=== PATIENT | female | born 1935 | race American Indian/Alaskan Native ===

== ENCOUNTER 2017-08-17 08:10 | Inpatient (IN) | payer MEDICARE, MEDICAID ==
[2017-08-17] MEDS ORDERED: Sodium Chloride 0.9% 500 ML IV ONE (08:31)
[2017-08-17] MEDS ORDERED: Morphine 4 MG/ML VIAL ONE (08:47)
[2017-08-17] MEDS ORDERED: Sodium Chloride 0.9% 1,000 ML ONE (08:47)
[2017-08-17 09:04] LABS: ALB/GLOB RATIO 1.5 (1.0-2.1); ALCOHOL SERUM 92 mg/dl (0-10); ALKALINE PHOSPHATASE 146 U/L (38-126); ALT/SGPT 48 U/L (9-52); AST/SGOT 61 U/L (14-36); BILIRUBIN,TOTAL 1.4 mg/dL (0.2-1.3); BLOOD UREA NITROGEN 11 mg/dL (7-17); CALCIUM 8.4 mg/dl (8.6-10.4); CARBON DIOXIDE 24 mmol/L (22-30); CHLORIDE 101 mmol/L (98-107); GFR AFRICAN-AMERICAN > 60; GLUCOSE,RANDOM 77 mg/dL (65-105); POTASSIUM 3.4 mmol/L (3.6-5.2); SODIUM 142 mmol/L (132-148); TOTAL PROTEIN 7.7 g/dL (6.3-8.3)
[2017-08-17 09:05] LABS: INR 0.9
[2017-08-17 09:06] LABS: BASO % 0.3 % (0.0-2.0); HEMATOCRIT 36.3 % (34.0-47.0); LYMPH # 0.6 K/uL (1.0-4.3); LYMPH % 6.8 % (20.0-40.0); MEAN CELL VOLUME 89.7 fL (81.0-99.0); MEAN CORPUSCULAR HEMOGLOBIN 29.6 pg (27.0-31.0); MEAN PLATELET VOLUME 8.3 fL (7.2-11.7); MONO # 0.5 K/uL (0.0-0.8); MONO % 5.7 % (0.0-10.0); PLATELET COUNT 292 K/uL (130-400); RED CELL DISTRIBUTION WIDTH 15.1 % (11.5-14.5); WHITE BLOOD COUNT 9.1 K/uL (4.8-10.8)
--- NOTE | 2017-08-17 09:31 | C.PDOC ---
History Of Present Illness 82-year-old female, PMHx includes Hypertension, is BIBA after a fall this morning. Patient is unsure how or why she fell. Grandson states he found her on floor complaining of left hip and left wrist pain. Patient denies LOC, head injury, dizziness, chest pain, palpitations. - HPI Time Seen by Provider: 08/17/17 08:14 Chief Complaint (Nursing): Trauma History Per: Patient, Family Injury Occurred (Timing): Just Before Arrival Past Medical History Reviewed: Historical Data, Nursing Documentation, Vital Signs Vital Signs: Last Vital Signs Temp 97.8 F 08/21/17 04:00 Pulse 96 H 08/21/17 04:00 Resp 20 08/21/17 04:00 BP 116/68 08/21/17 04:00 Pulse Ox 96 08/21/17 04:00 - Medical History PMH: CVA, HTN Family History: States: Diabetes, Hypertension - Social History Hx Tobacco Use: No Hx Alcohol Use: Yes Hx Substance Use: No - Immunization History Hx Tetanus Toxoid Vaccination: No Hx Influenza Vaccination: No Hx Pneumococcal Vaccination: No Review Of Systems Except As Marked, All Systems Reviewed And Found Negative. Constitutional: Negative for: Fever, Chills Cardiovascular: Negative for: Chest Pain, Palpitations Respiratory: Negative for: Shortness of Breath Gastrointestinal: Negative for: Nausea, Vomiting, Abdominal Pain, Diarrhea Musculoskeletal: Positive for: Hand Pain (L wrist), Other (L hip pain). Negative for: Neck Pain, Back Pain Neurological: Negative for: Weakness, Numbness, Headache, Dizziness Physical Exam - Physical Exam Appears: Well, Non-toxic, Other (in moderate pain ) Skin: Warm, Dry, No Rash Head: Atraumatic, Normacephalic Eye(s): bilateral: Normal Inspection, PERRL Oral Mucosa: Moist Cardiovascular: Rhythm Regular Respiratory: Normal Breath Sounds, No Rales, No Rhonchi, No Wheezing Gastrointestinal/Abdominal: Normal Exam, Bowel Sounds, Soft, No Tenderness Extremity: No Calf Tenderness, Capillary Refill (<2 seconds), No Deformity, Other (left hip: tender to palpation, left leg externally rotated. Mildy tender to palpation at left knee and left wrist w/ mild swelling (at wrist). ) Pulses: Left Radial: Normal, Right Radial: Normal, Left Dorsalis Pedis: Normal, Right Dorsalis Pedis: Normal Neurological/Psych: Oriented x3, Normal Speech, Normal Cognition ED Course And Treatment - Laboratory Results Result Diagrams: 08/20/17 07:44 08/20/17 07:44 ECG: Interpreted By Me, Viewed By Me (sinus tachycardia 103 bpm with PVCs, left axis deviation, no acute ST/T wave changes ) ECG Interpretation: Abnormal O2 Sat by Pulse Oximetry: 96 (on RA) Pulse Ox Interpretation: Normal - CT Scan/US ct head Other Rad Studies (CT/US): Read By Radiologist, Radiology Report Reviewed CT/US Interpretation: Accession No. : [id number]. Patient Name / ID : CATRACHITA BHATIA / [id number]. Exam Date : 08/17/2017 09:14:53 ( Approved ). Study Comment : Sex / Age : F / 82Y. Creator : Mina Vivas MD. Dictator : Mina Vivas MD. Location Director : Head Esthetician : Mina Vivas MD. Approver2 : Report Date : 08/17/2017 09:54:48. My Comment : . This report is currently processing and HAS NOT BEEN OFFICIALLY SIGNED BY THE PHYSICIAN - ESTIMATED TIME OF APPROVAL IS 08/17/2017 09:59. PROCEDURE: CT HEAD WITHOUT CONTRAST. HISTORY: FALL, UNCLEAR IF SYNCOPE. COMPARISON: 2014. TECHNIQUE: Axial computed tomography images were obtained through the head/brain without intravenous contrast. Radiation dose: Total exam DLP = 963 mGy-cm. This CT exam was performed using one or more of the following dose reduction techniques: Automated exposure control, adjustment of the mA and/or kV according to patient size, and/or use of iterative reconstruction technique. FINDINGS: HEMORRHAGE: No intracranial hemorrhage. BRAIN: No mass effect or edema. Scattered focal lucencies in the subcortical and periventricular white matter suggestive for chronic microvascular ischemic change. Dense bilateral basal ganglia calcifications. Stable lacunar infarct in the right caudate head. Persistent linear radiopaque foci seen within the bilateral cerebellum suggestive for calcifications. Persistent chronic low attenuation seen within the posterior right parietal white matter suggestive for chronic ischemic change. VENTRICLES: Unremarkable. No hydrocephalus. CALVARIUM: Persistent bowing deformity of the left zygomatic arch. PARANASAL SINUSES: Unremarkable as visualized. No significant inflammatory changes. MASTOID AIR CELLS: Unremarkable as visualized. No inflammatory changes. OTHER FINDINGS: None. IMPRESSION: No acute intracranial abnormality. Chronic microvascular ischemic changes. Stable right caudate head lacunar infarct. Stable bilateral basal ganglia and cerebellar calcifications. Additional findings as above. If focal neurologic deficit persists, consider MRI. Progress Note: Bloodwork, EKG, CT Head, CXR, XR L Knee, L Hip and L Wrist ordered and reviewed. Patient treated with Morphine and IVFs. Patient and family at bedside state her primary doctor is Dr. Brand. 11:45am- Discussed patient with Dr. Nuno, aware of patient with left hip fx. Patient can bed fed today as per him. - Physician Consult Information Physician Contacted: Bora Brand Outcome Of Conversation: Discussed patient with PMD Dr. Brand, agrees with admission to his service for left hip fx with Dr. Nuno for orthopedics. Disposition - Disposition Disposition: HOSPITALIZED Disposition Time: 10:00 Condition: STABLE - Clinical Impression Clinical Impression: Closed left hip fracture, Fall - Scribe Statement The provider has reviewed the documentation as recorded by the Scribe (Marilia Dick) All medical record entries made by the Scribe were at my direction and personally dictated by me. I have reviewed the chart and agree that the record accurately reflects my personal performance of the history, physical exam, medical decision making, and the department course for this patient. I have also personally directed, reviewed, and agree with the discharge instructions and disposition. Decision To Admit - Pt Status Changed To: Hospital Disposition Of: Inpatient - Admit Certification Admit to Inpatient:: After my assessment, the patient will require hospitalization for at least two midnights. This is because of the severity of symptoms shown, intensity of services needed, and/or the medical risk in this patient being treated as an outpatient. - InPatient: Physician Admission Certification: I certify that this patient requires 2 or more midnights of care for the following reason:: see notes - . Bed Request Type: Regular Admitting Physician: Bora Elamir Patient Diagnosis: Closed left hip fracture, Fall
--- NOTE | 2017-08-17 09:35 | RAD ---
Pelvis and left hip two views History: Left hip pain. Fracture. Comparison: None available. Findings: Transverse oblique fracture deformity through the left proximal femur at the level of the base of the femoral neck /intertrochanteric region with moderate angulation of the femoral head in relationship to the distal femur. Severe degenerative changes of the right hip joint space with joint space narrowing and subchondral sclerosis. Overlying bowel gas precludes evaluation of the sacrum and bilateral iliac bones. Rounded radiopaque density projects over the right mya abdomen as well as lower pelvis suggestive for possible calcified phleboliths. Impression: Fracture deformity of the left proximal femur.
[2017-08-17 09:49] LABS: NEUTROPHIL 86 % (50-75); TOTAL CELLS COUNTED 100
--- NOTE | 2017-08-17 09:56 | CT ---
PROCEDURE: CT HEAD WITHOUT CONTRAST. HISTORY: FALL, UNCLEAR IF SYNCOPE COMPARISON: 05/17/2015 TECHNIQUE: Axial computed tomography images were obtained through the head/brain without intravenous contrast. Radiation dose: Total exam DLP = 963 mGy-cm. This CT exam was performed using one or more of the following dose reduction techniques: Automated exposure control, adjustment of the mA and/or kV according to patient size, and/or use of iterative reconstruction technique. FINDINGS: HEMORRHAGE: No intracranial hemorrhage. BRAIN: No mass effect or edema. Scattered focal lucencies in the subcortical and periventricular white matter suggestive for chronic microvascular ischemic change. Dense bilateral basal ganglia calcifications. Stable lacunar infarct in the right caudate head. Persistent linear radiopaque foci seen within the bilateral cerebellum suggestive for calcifications. Persistent chronic low attenuation seen within the posterior right parietal white matter suggestive for chronic ischemic change. VENTRICLES: Unremarkable. No hydrocephalus. CALVARIUM: Persistent bowing deformity of the left zygomatic arch. PARANASAL SINUSES: Unremarkable as visualized. No significant inflammatory changes. MASTOID AIR CELLS: Unremarkable as visualized. No inflammatory changes. OTHER FINDINGS: None. IMPRESSION: No acute intracranial abnormality. Chronic microvascular ischemic changes Stable right caudate head lacunar infarct. Stable bilateral basal ganglia and cerebellar calcifications. Additional findings as above. If focal neurologic deficit persists, consider MRI.
[2017-08-17 10:14] LABS: RBC URINE 3 /hpf (0-3); URINE BACTERIA RARE (<OCC); URINE BILIRUBIN NEGATIVE (NEGATIVE); URINE BLOOD 1+ (NEGATIVE); URINE COLOR Colorless (YELLOW); URINE GLUCOSE (UA) NORMAL (Normal); URINE KETONE 1+ mg/dL (NEGATIVE); URINE LEUKOCYTE ESTERASE TRACE Leu/uL (Negative); URINE PROTEIN NEGATIVE (NEGATIVE); URINE UROBILINOGEN NORMAL mg/dL (0.2-1.0); WBC URINE 2 /hpf (0-5)
[2017-08-17] MEDS ORDERED: Nitroglycerin 2% Ointment Foilpak UD TOP STA (11:17)
--- NOTE | 2017-08-17 11:34 | RAD ---
Left wrist four views History: Fall. Comparison: None available. Findings: Suggestion of cortical irregularity along the radial aspect of the distal radius at the level of the physis concerning for possible fracture deformity. Clinical correlation. Punctate radiopaque density seen at the ulnar aspect of the midcarpal row, nonspecific. Prominent degenerative changes at the 1st carpometacarpal joint space. Degenerative changes noted at the 1st MCP and 5th MCP joint spaces. Degenerative changes noted at the STT joint space. Mild productive change and or bony protuberance along the medial cortex of the mid to distal scaphoid, clinical correlation. Impression: Suggestion of cortical irregularity along the radial aspect of the distal radius at the level of the physis concerning for possible fracture deformity. Clinical correlation. Punctate radiopaque density seen at the ulnar aspect of the midcarpal row, nonspecific. Prominent degenerative changes at the 1st carpometacarpal joint space. Degenerative changes noted at the 1st MCP and 5th MCP joint spaces. Degenerative changes noted at the STT joint space. Mild productive change and or bony protuberance along the medial cortex of the mid to distal scaphoid, clinical correlation. Correlation with MRI may be helpful if clinically indicated.
[2017-08-17] MEDS: Enoxaparin 40 mg Syringe SC SCH (14:00)
--- NOTE | 2017-08-17 14:19 | RAD ---
Left knee two views History: Injury. Comparison: None available. Findings: Moderate medial and patellofemoral compartment joint space narrowing. Lateral compartmental osteophytosis. Moderate suprapatellar joint effusion. Lobulated soft tissue calcifications seen both anteriorly and posteriorly at the level of the knee joint. Suggestion of loose osteochondral bodies at the posterior aspect of the femorotibial joint space. Vascular calcifications. On the lateral view, there is a linear radiopaque and/or metallic density projecting over distal femur which may be external and/or within the lateral soft tissues. Clinical correlation. Impression: Moderate medial and patellofemoral compartment joint space narrowing. Lateral compartmental osteophytosis. Moderate suprapatellar joint effusion. Lobulated soft tissue calcifications seen both anteriorly and posteriorly at the level of the knee joint. Suggestion of loose osteochondral bodies at the posterior aspect of the femorotibial joint space. Vascular calcifications. On the lateral view, there is a linear radiopaque and/or metallic density projecting over distal femur which may be external and/or within the lateral soft tissues. Clinical correlation.
--- NOTE | 2017-08-18 09:35 | CT ---
CT bony pelvis History: Left hip fracture. Comparison: None available. Technique: Axial computed tomographic images of the pelvis were performed without intravenous contrast. Subsequently, sagittal and coronal reformatted images were obtained. This CT exam was performed using one or more of the following dose reduction techniques: Automated exposure control, adjustment of the mA and/or kV according to patient size, and/or use of iterative reconstruction technique. Findings: Acute subcapital fracture identified within the left proximal femur with mild displacement. Femoral shaft is externally rotated and superiorly displaced relative to the femoral head. Calcified atherosclerotic disease. Decompressed urinary bladder with a Ramos catheter. Incidentally noted is a 1.1 centimeter calcified gallstone. Posterior disc osteophyte complex at the L5-S1 level noted. Prominent left-sided paravertebral osteophytosis at the L4-5 level. Small hypoattenuated cystic foci noted within the right proximal femur at the level of the physis. Impression: Findings concerning for a subcapital fracture of the left proximal femur as detailed above. These findings were preliminarily reported at 10:16 p.m. on 08/17/[address] Aletha Gamez from [facility].
[2017-08-18] MEDS: Enoxaparin 40 mg Syringe SC SCH (09:45)
--- NOTE | 2017-08-18 10:42 | RAD ---
PROCEDURE: CHEST RADIOGRAPH, 1 VIEW HISTORY: Fall COMPARISON: None available. FINDINGS: LUNGS: The lungs are well inflated. There is moderate venous congestion and mild interstitial pulmonary edema. PLEURA: No pneumothorax or pleural fluid seen. CARDIOVASCULAR: There is mild cardiomegaly and unfolding of the aorta. OSSEOUS STRUCTURES: No significant abnormalities. VISUALIZED UPPER ABDOMEN: Normal. OTHER FINDINGS: None. IMPRESSION: Moderate pulmonary venous congestion and mild interstitial pulmonary edema No acute findings.
--- NOTE | 2017-08-18 10:57 | HP ---
HISTORY OF PRESENT ILLNESS: An 82-year-old female, history of hypertension, stays at home. The patient sustained a fracture of the hip. Patient has history of hypertension, high cholesterol. The patient takes lisinopril, Zestril, vitamin D. PHYSICAL EXAMINATION: GENERAL: Patient is awake, alert, and oriented. VITAL SIGNS: Temperature 98, pulse 90. HEENT: Within normal limits. NECK: Supple. CHEST: Symmetrical. HEART: Regular. ABDOMEN: Soft. EXTREMITIES: No edema. IMPRESSION: . The patient with fractured hip. The patient to get bedrest, supportive care, Orthopedic consult, n.p.o. Bora Brand MD
[2017-08-18 11:53] LABS: BASO % 0.3 % (0.0-2.0); EOS % 0.1 % (0.0-4.0); HEMATOCRIT 36.2 % (34.0-47.0); LYMPH # 1.1 K/uL (1.0-4.3); LYMPH % 10.8 % (20.0-40.0); MEAN CELL VOLUME 88.3 fL (81.0-99.0); MEAN CORPUSCULAR HEMOGLOBIN 29.3 pg (27.0-31.0); MEAN CORPUSCULAR HGB CONC 33.2 g/dL (33.0-37.0); MEAN PLATELET VOLUME 8.5 fL (7.2-11.7); MONO # 0.7 K/uL (0.0-0.8); MONO % 7.3 % (0.0-10.0); NRBC % 0.1 % (0.0-2.0); RED CELL DISTRIBUTION WIDTH 14.8 % (11.5-14.5); WHITE BLOOD COUNT 10.3 K/uL (4.8-10.8)
[2017-08-18 12:22] LABS: ALB/GLOB RATIO 1.4 (1.0-2.1); BILIRUBIN,TOTAL 1.3 mg/dL (0.2-1.3); CALCIUM 8.1 mg/dl (8.6-10.4); MAGNESIUM 1.4 mg/dL (1.6-2.3); POTASSIUM 4.4 mmol/L (3.6-5.2); TOTAL PROTEIN 6.8 g/dL (6.3-8.3)
--- NOTE | 2017-08-18 12:59 | CP.PCM.PN ---
Subjective - Date & Time of Evaluation Date of Evaluation: 08/18/17 Time of Evaluation: 08:00 - Subjective Subjective: Medicine progress note Patient seen and examined at bedside this morning. Patient states that she has pain on the left side of her leg/hip. She denies fever/chills. Patient has no other complaints this morning. She states that she has not been able to eat much and doesn't have an appetite. She was requesting ensure drinks. Objective - Vital Signs/Intake and Output Vital Signs (last 24 hours): Temp Pulse Resp BP Pulse Ox 98.5 F 99 H 20 103/68 98 08/18/17 07:26 08/18/17 09:15 08/18/17 07:26 08/18/17 09:15 08/18/17 07:26 Intake and Output: 08/18/17 08/18/17 06:59 18:59 Intake Total 10 Output Total 50 Balance -40 - Medications Medications: Current Medications Amlodipine Besylate (Norvasc) 5 mg PO DAILY [facility] Last Admin: 08/18/17 09:17 Dose: Not Given Enoxaparin Sodium (Lovenox) 40 mg SC DAILY [facility] Last Admin: 08/18/17 09:45 Dose: 40 mg Hydrochlorothiazide (Hydrodiuril) 25 mg PO DAILY [facility] Last Admin: 08/18/17 09:43 Dose: 25 mg Lisinopril (Zestril) 10 mg PO DAILY [facility] Last Admin: 08/18/17 09:17 Dose: 10 mg Morphine Sulfate (Morphine) 4 mg IVP Q2 PRN PRN Reason: Pain Last Admin: 08/18/17 05:53 Dose: 4 mg Rosuvastatin Calcium (Crestor) 10 mg PO HS [facility] Last Admin: 08/17/17 21:16 Dose: 10 mg - Labs Labs: 08/18/17 11:40 08/18/17 11:40 PT 10.1 SECONDS (9.7-12.2) 08/17/17 08:48 INR 0.9 08/17/17 08:48 APTT 31 SECONDS (21-34) 08/17/17 08:48 - Constitutional Appears: Non-toxic, No Acute Distress, Chronically Ill - Head Exam Head Exam: ATRAUMATIC, NORMAL INSPECTION - Eye Exam Eye Exam: EOMI - ENT Exam ENT Exam: Mucous Membranes Moist - Respiratory Exam Respiratory Exam: Clear to Ausculation Bilateral, NORMAL BREATHING PATTERN. absent: Respiratory Distress - Cardiovascular Exam Cardiovascular Exam: REGULAR RHYTHM, +S1, +S2 - GI/Abdominal Exam GI & Abdominal Exam: Soft, Normal Bowel Sounds. absent: Distended, Firm, Guarding, Tenderness - Extremities Exam Extremities Exam: Normal Inspection Additional comments: Left leg externally rotation. pain on left side of hip - Back Exam Back Exam: NORMAL INSPECTION - Neurological Exam Neurological Exam: Alert, Awake, Oriented x3 - Psychiatric Exam Psychiatric exam: Normal Affect, Normal Mood - Skin Skin Exam: Dry, Intact, Normal Color, Warm Assessment and Plan - Assessment and Plan (Free Text) Assessment: Left Femur fracture - s/p fall Patient for possible OR tomorrow for left proximal femur fracture 08/17 Hip/Pelvis Xray Transverse oblique fracture deformity through the left proximal femur at the level of the base of the femoral neck/introchanteric region, (please read full report) f/u Pelvis CT Chest X ray/EKG coags for pre op, Dr Torres consulted, help appreciated for pre op clearance Morphone 4mg IVP Q2 prn Knee X ray - no fracture (please read full report) Wrist Xray - degenerative changes (please read full report) Head CT - no bleed, chronic microvascular changes, stable right caudate head lacunar infarct, stable basal gangalia and cerebellar calcifications. Hypertension Norvasc 5mg PO daily HCCTZ 25mg PO daily Lisinopril 10mg PO daily Crestor 10mg PO HS Prophylactic Measures Lovenox 40mg SC daily - will hold at midnight pre OR NPO post midnight
[2017-08-18] MEDS: Magnesium Sulfate 1 gm in D5W 1 GM/100 ML BAG IVPB SCH ×2 (14:04→16:46)
--- NOTE | 2017-08-18 14:45 | CP.PCM.CON ---
History of Present Illness - History of Present Illness History of Present Illness: Orthopedic consultation Dr. Rabago 82F complains of left hip pain after fall walking to bathroom at home. Patient + ETOH on admission. Denies pain in other extremities.She says her wrist was swollen before but is not painful. Review of Systems - Review of Systems All systems: reviewed and no additional remarkable complaints except Past Patient History - Infectious Disease Hx of Infectious Diseases: None - Tetanus Immunizations Tetanus Immunization: Unknown - Past Medical History & Family History Past Medical History?: Yes - Past Social History Smoking Status: Light Smoker < 10 Cigarettes Daily - CARDIAC Hx Hypertension: Yes - PULMONARY Hx Respiratory Disorders: No - NEUROLOGICAL HX Cerebrovascular Accident: Yes - HEENT Hx HEENT Problems: No - RENAL Hx Chronic Kidney Disease: No - ENDOCRINE/METABOLIC Hx Endocrine Disorders: No - HEMATOLOGICAL/ONCOLOGICAL Hx Blood Disorders: No - INTEGUMENTARY Hx Dermatological Problems: No - MUSCULOSKELETAL/RHEUMATOLOGICAL Hx Falls: No - GASTROINTESTINAL Hx Gastrointestinal Disorders: No - GENITOURINARY/GYNECOLOGICAL Hx Genitourinary Disorders: No - PSYCHIATRIC Hx Substance Use: No - SURGICAL HISTORY Other/Comment: yes, enlarged bladder, poor urinary control, date unknown - ANESTHESIA Hx Anesthesia: Yes Hx Anesthesia Reactions: No Meds Allergies/Adverse Reactions: Allergies Allergy/AdvReac Type Severity Reaction Status Date / Time No Known Allergies Allergy Verified 08/17/17 08:24 - Medications Medications: Current Medications Amlodipine Besylate (Norvasc) 5 mg PO DAILY [facility] Last Admin: 08/18/17 09:17 Dose: Not Given Enoxaparin Sodium (Lovenox) 40 mg SC DAILY [facility] Last Admin: 08/18/17 09:45 Dose: 40 mg Hydrochlorothiazide (Hydrodiuril) 25 mg PO DAILY [facility] Last Admin: 08/18/17 09:43 Dose: 25 mg Magnesium Sulfate/Dextrose (Magnesium Sulfate 1 Gm/100 Ml D5w) 1 gm in 100 mls @ 300 mls/hr IVPB Q30M [facility] Stop: 08/18/17 14:49 Last Admin: 08/18/17 14:04 Dose: 300 mls/hr Lisinopril (Zestril) 10 mg PO DAILY [facility] Last Admin: 08/18/17 09:17 Dose: 10 mg Morphine Sulfate (Morphine) 4 mg IVP Q2 PRN PRN Reason: Pain Last Admin: 08/18/17 05:53 Dose: 4 mg Rosuvastatin Calcium (Crestor) 10 mg PO HS [facility] Last Admin: 08/17/17 21:16 Dose: 10 mg Physical Exam - Constitutional Appears: Well, No Acute Distress - Extremities Exam Additional comments: calvessoft ntneg homans +DP/PT pulses shortened ER - Expanded Upper Extremities Exam Left Elbow exam: full ROM Forearm Wrist exam: full ROM (non tender to distal radius), swelling Neuro motor exam: finger 2-5 abduction intact, thumb abduction, thumb IP flexion intact, thumb opposition intact, wrist extension intact Neurosensory exam: median nerve intact, radial nerve intact, ulnar nerve intact - Expanded Lower Extremities Exam Left Neuro vacular tendon exam: no vascular compromise - Neurological Exam Neurological exam: Alert, Oriented x3 - Psychiatric Exam Psychiatric exam: Normal Affect, Normal Mood - Skin Skin Exam: Dry, Intact, Normal Color, Warm Results - Vital Signs Recent Vital Signs: Last Vital Signs Temp 98.5 F 08/18/17 07:26 Pulse 99 H 08/18/17 09:15 Resp 20 08/18/17 07:26 BP 103/68 08/18/17 09:15 Pulse Ox 98 08/18/17 07:26 - Labs Result Diagrams: 08/18/17 11:40 08/18/17 11:40 Labs: Laboratory Results - last 24 hr 08/18/17 08/18/17 11:40 11:40 WBC 10.3 RBC 4.10 Hgb 12.0 Hct 36.2 MCV 88.3 MCH 29.3 MCHC 33.2 RDW 14.8 H Plt Count 287 MPV 8.5 Neut % (Auto) 81.5 H Lymph % (Auto) 10.8 L [place] % (Auto) 7.3 Eos % (Auto) 0.1 Baso % (Auto) 0.3 Neut # 8.4 H Lymph # 1.1 [place] # 0.7 Eos # 0.0 Baso # 0.0 Sodium 133 Potassium 4.4 Chloride 94 L Carbon Dioxide 31 H Anion Gap 12 BUN 18 H Creatinine 1.7 H Est GFR ( Amer) 35 Est GFR (Non-Af Amer) 29 Random Glucose 101 Calcium 8.1 L Phosphorus 4.0 Magnesium 1.4 L Total Bilirubin 1.3 AST 50 H ALT 39 Alkaline Phosphatase 125 Total Protein 6.8 Albumin 3.9 Globulin 2.8 Albumin/Globulin Ratio 1.4 - Impressions Impression: atient Name / ID : CATRACHITA BHATIA / [id number] Exam Date : 08/17/2017 21:32:55 ( Approved ) Study Comment : Sex / Age : F / 82Y Creator : Teresa Nix RT Dictator : Mina Vivas MD [employer] Operator : Project Portfolio Analyst : Mina Vivas MD Approver2 : Report Date : 08/17/2017 22:39:21 My Comment : CT bony pelvis History: Left hip fracture. Comparison: None available. Technique: Axial computed tomographic images of the pelvis were performed without intravenous contrast. Subsequently, sagittal and coronal reformatted images were obtained. This CT exam was performed using one or more of the following dose reduction techniques: Automated exposure control, adjustment of the mA and/or kV according to patient size, and/or use of iterative reconstruction technique. Findings: Acute subcapital fracture identified within the left proximal femur with mild displacement. Femoral shaft is externally rotated and superiorly displaced relative to the femoral head. Calcified atherosclerotic disease. Decompressed urinary bladder with a Ramos catheter. Incidentally noted is a 1.1 centimeter calcified gallstone. Posterior disc osteophyte complex at the L5-S1 level noted. Prominent left- sided paravertebral osteophytosis at the L4-5 level. Small hypoattenuated cystic foci noted within the right proximal femur at the level of the physis. Impression: Findings concerning for a subcapital fracture of the left proximal femur as detailed above. These findings were preliminarily reported at 10:16 p.m. on 08/17/[address] Aletha Gamez from [facility]. atient Name / ID : CATRACHITA BHATIA / [id number] Exam Date : 08/17/2017 08:40:32 ( Approved ) Study Comment : Sex / Age : F Y Creator : Mina Vivas MD Dictator : Mina Vivas MD [employer] Operator : Project Portfolio Analyst : Mina Vivas MD Approver2 : Report Date : 08/17/2017 14:18:26 My Comment : Left knee two views History: Injury. Comparison: None available. Findings: Moderate medial and patellofemoral compartment joint space narrowing. Lateral compartmental osteophytosis. Moderate suprapatellar joint effusion. Lobulated soft tissue calcifications seen both anteriorly and posteriorly at the level of the knee joint. Suggestion of loose osteochondral bodies at the posterior aspect of the femorotibial joint space. Vascular calcifications. On the lateral view, there is a linear radiopaque and/or metallic density projecting over distal femur which may be external and/or within the lateral soft tissues. Clinical correlation. Impression: Moderate medial and patellofemoral compartment joint space narrowing. Lateral compartmental osteophytosis. Moderate suprapatellar joint effusion. Lobulated soft tissue calcifications seen both anteriorly and posteriorly at the level of the knee joint. Suggestion of loose osteochondral bodies at the posterior aspect of the femorotibial joint space. Vascular calcifications. On the lateral view, there is a linear radiopaque and/or metallic density projecting over distal femur which may be external and/or within the lateral soft tissues. Clinical correlation. atient Name / ID : CATRACHITA BHATIA / [id number] Exam Date : 08/17/2017 08:40:05 ( Approved ) Study Comment : Sex / Age : F / 82Y Creator : Mina Vivas MD Dictator : Mina Vivas MD [employer] Operator : Project Portfolio Analyst : Mina Vivas MD Approver2 : Report Date : 08/17/2017 11:32:58 My Comment : Left wrist four views History: Fall. Comparison: None available. Findings: Suggestion of cortical irregularity along the radial aspect of the distal radius at the level of the physis concerning for possible fracture deformity. Clinical correlation. Punctate radiopaque density seen at the ulnar aspect of the midcarpal row, nonspecific. Prominent degenerative changes at the 1st carpometacarpal joint space. Degenerative changes noted at the 1st MCP and 5th MCP joint spaces. Degenerative changes noted at the STT joint space. Mild productive change and or bony protuberance along the medial cortex of the mid to distal scaphoid, clinical correlation. Impression: Suggestion of cortical irregularity along the radial aspect of the distal radius at the level of the physis concerning for possible fracture deformity. Clinical correlation. Punctate radiopaque density seen at the ulnar aspect of the midcarpal row, nonspecific. Prominent degenerative changes at the 1st carpometacarpal joint space. Degenerative changes noted at the 1st MCP and 5th MCP joint spaces. Degenerative changes noted at the STT joint space. Mild productive change and or bony protuberance along the medial cortex of the mid to distal scaphoid, clinical correlation. Correlation with MRI may be helpful if clinically indicated. Assessment & Plan (1) Left displaced femoral neck fracture Assessment and Plan: For OR pending clearance/optimization consider risk for alcohol withdrawal protocol cont lovenox at this time scd u/a t&C for THR on weds if optimized Status: Acute (2) Swelling of joint, wrist, left Assessment and Plan: ? fx on xray but non tender noted mild swelling ct scan ordered volar splint placed Status: Acute
[2017-08-18] MEDS ORDERED: Magnesium Sulfate 1 gm in D5W 1 GM/100 ML BAG IVPB SCH (17:00)
--- NOTE | 2017-08-18 18:35 | CP.PCM.CON ---
History of Present Illness - History of Present Illness History of Present Illness: I was asked to evaluate patient by Dr Brand. Patient is an 82 year old female with PMH HTN, who presents with a fall. The patient sustained a hip fracture and requires surgery. The patient denies chest pain. She is able to perform her activiites of daily living without difficulty. The patient is s/p echocardiogram Review of Systems - Constitutional Constitutional: absent: As Per HPI, Anorexia, Chills, Daytime Sleepiness, Excessive Sweating, Fatigue, Fever, Frequent Falls, Headache, Increased Appetite , Lethargy, Malaise, Night Sweats, Snoring, Sleep Apnea, Weight Gain, Weight Loss, Weakness, Other - EENT Eyes: absent: As Per HPI, Blind Spots, Blurred Vision, Change in Vision, Decreased Night Vision, Diplopia, Discharge, Dry Eye, Exophthalmos, Floaters, Irritation, Itchy Eyes, Loss of Peripheral Vision, Pain, Photophobia, Requires Corrective Lenses, Sees Flashes, Spots in Vision, Tunnel Vision, Other Visual Disturbances, Loss of Vision, Other Ears: absent: As Per HPI, Decreased Hearing, Ear Discharge, Ear Pain, Tinnitus, Abnormal Hearing, Disequilibrium, Dizziness, Other Nose/Mouth/Throat: absent: As Per HPI, Epistaxis, Nasal Congestion, Nasal Discharge, Nasal Obstruction, Nasal Trauma, Nose Pain, Post Nasal Drip, Sinus Pain, Sinus Pressure, Bleeding Gums, Change in Voice, Dental Pain, Dry Mouth, Dysphagia, Halitosis, Hoarsness, Lip Swelling, Mouth Lesions, Mouth Pain, Odynophagia, Sore Throat, Throat Swelling, Tongue Swelling, Facial Pain, Neck Pain, Neck Mass, Other - Cardiovascular Cardiovascular: absent: As Per HPI, Acrocyanosis, Chest Pain, Chest Pain at Rest , Chest Pain with Activity, Claudication, Diaphoresis, Dyspnea, Dyspnea on Exertion, Edema, Irregular Heart Rhythm, Pain Radiating to Arm/Neck/Jaw, Leg Edema, Leg Ulcers, Lightheadedness, Orthopnea, Palpitations, Paroxysmal Nocturnal Dyspnea, Pedal Edema, Radiating Pain, Rapid Heart Rate, Slow Heart Rate, Syncope, Other - Respiratory Respiratory: absent: As Per HPI, Cough, Dyspnea, Hemoptysis, Dyspnea on Exertion , Wheezing, Snoring, Stridor, Pain on Inspiration, Chest Congestion, Excessive Mucous Production, Change in Mucous Color, Pain with Coughing, Other - Gastrointestinal Gastrointestinal: absent: As Per HPI, Abdominal Pain, Belching, Bloating, Change in Bowel Habits, Change in Stool Character, Coffee Ground Emesis, Constipation, Cramping, Diarrhea, Dyspepsia, Dysphagia, Early Satiety, Excessive Flatus, Fecal Incontinence, Heartburn, Hematemesis, Hematochezia, Loose Stools, Melena, Nausea, Odynophagia, Temesmus, Vomiting, Other - Genitourinary Genitourinary: absent: As Per HPI, Change in Urinary Stream, Difficulty Urinating, Dysuria, Flank Pain, Hematuria, Pyuria, Nocturia, Urinary Incontinence, Urinary Frequency, Urinary Hesitance, Urinary Urgency, Voiding Freq/Small Amts, Freq UTI, Hx Renal/Bladder Calculi, Hx /Renal Surgery, Bladder Distension, Other - Musculoskeletal Musculoskeletal: absent: As Per HPI, Abnormal Gait, Arthralgias, Atrophy, Back Pain, Deformity, Joint Swelling, Limited Range of Motion, Loss of Height, Muscle Cramps, Muscle Weakness, Myalgias, Neck Pain, Numbness, Radiating Pain into Limb, Stiffness, Tingling, Other - Integumentary Integumentary: absent: As Per HPI, Acne, Alopecia, Bleeding Lesions, Change in Hair, Change in Nails, Change in Pigmentation, Changing Lesions, Dry Skin, Erythema, Furuncle, Hirsutism, Lesions, New Lesions, Non-Healing Lesions, Photosensitivity, Pruritus, Rash, Skin Pain, Skin Ulcer, Sores, Striae, Swelling , Unusual Bruising, Wounds, Jaundice, Other - Neurological Neurological: absent: As Per HPI, Abnormal Gait, Abnormal Hearing, Abnormal Movements, Abnormal Speech, Behavioral Changes, Burning Sensations, Confusion, Convulsions, Disequilibrium, Dizziness, Numbness, Focal Weakness, Frequent Falls , Headaches, Lack of Coordination, Loss of Vision, Memory Loss, Paresthesias, Radicular Pain, Restless Legs, Sensory Deficit, Syncope, Tingling, Tremor, Vertigo, Weakness, Other Visual Disturbances, Other - Psychiatric Psychiatric: absent: As Per HPI, Abnormal Sleep Pattern, Anhedonia, Anxiety, Auditory Hallucinations, Behavioral Changes, Change in Appetite, Change in Libido, Confusion, Depression, Difficulty Concentrating, Hallucinations, Homicidal Ideation, Hopelessness, Irritability, Memory Loss, Mood Swings, Panic Attacks, Paranoia, Suicidal Ideation, Visual Hallucinations, Tactile Hallucinations, Other - Endocrine Endocrine: absent: As Per HPI, Change in Body Appearance, Change in Libido, Cold Intolorance, Deepening of Voice, Excessive Sweating, Fatigue, Flushing, Heat Intolorance, Increase in Ring/Shoe/Hat Size, Palpitations, Polydipsia, Polyphagia, Polyuria, Other - Hematologic/Lymphatic Hematologic: absent: As Per HPI, Easy Bleeding, Easy Bruising, Lymphadenopathy, Other Past Patient History - Infectious Disease Hx of Infectious Diseases: None - Tetanus Immunizations Tetanus Immunization: Unknown - Past Medical History & Family History Past Medical History?: Yes - Past Social History Smoking Status: Light Smoker < 10 Cigarettes Daily - CARDIAC Hx Hypertension: Yes - PULMONARY Hx Respiratory Disorders: No - NEUROLOGICAL HX Cerebrovascular Accident: Yes - HEENT Hx HEENT Problems: No - RENAL Hx Chronic Kidney Disease: No - ENDOCRINE/METABOLIC Hx Endocrine Disorders: No - HEMATOLOGICAL/ONCOLOGICAL Hx Blood Disorders: No - INTEGUMENTARY Hx Dermatological Problems: No - MUSCULOSKELETAL/RHEUMATOLOGICAL Hx Falls: No - GASTROINTESTINAL Hx Gastrointestinal Disorders: No - GENITOURINARY/GYNECOLOGICAL Hx Genitourinary Disorders: No - PSYCHIATRIC Hx Substance Use: No - SURGICAL HISTORY Other/Comment: yes, enlarged bladder, poor urinary control, date unknown - ANESTHESIA Hx Anesthesia: Yes Hx Anesthesia Reactions: No Meds Allergies/Adverse Reactions: Allergies Allergy/AdvReac Type Severity Reaction Status Date / Time No Known Allergies Allergy Verified 08/17/17 08:24 - Medications Medications: Current Medications Amlodipine Besylate (Norvasc) 5 mg PO DAILY [facility] Last Admin: 08/18/17 09:17 Dose: Not Given Enoxaparin Sodium (Lovenox) 40 mg SC DAILY [facility] Last Admin: 08/18/17 09:45 Dose: 40 mg Hydrochlorothiazide (Hydrodiuril) 25 mg PO DAILY [facility] Last Admin: 08/18/17 09:43 Dose: 25 mg Lisinopril (Zestril) 10 mg PO DAILY [facility] Last Admin: 08/18/17 09:17 Dose: 10 mg Morphine Sulfate (Morphine) 4 mg IVP Q2 PRN PRN Reason: Pain Last Admin: 08/18/17 05:53 Dose: 4 mg Rosuvastatin Calcium (Crestor) 10 mg PO [facility] Last Admin: 08/17/17 21:16 Dose: 10 mg Physical Exam - Constitutional Appears: Non-toxic - Head Exam Head Exam: NORMAL INSPECTION - Eye Exam Eye Exam: Normal appearance - ENT Exam ENT Exam: Mucous Membranes Moist - Neck Exam Neck exam: Positive for: Full Rom - Respiratory Exam Respiratory Exam: Decreased Breath Sounds - Cardiovascular Exam Cardiovascular Exam: REGULAR RHYTHM - GI/Abdominal Exam GI & Abdominal Exam: Normal Bowel Sounds - Rectal Exam Rectal Exam: Deferred - Extremities Exam Extremities exam: Negative for: pedal edema - Back Exam Back exam: NORMAL INSPECTION - Neurological Exam Neurological exam: Alert, Oriented x3 - Psychiatric Exam Psychiatric exam: Normal Affect - Skin Skin Exam: Normal Color Results - Vital Signs Recent Vital Signs: Last Vital Signs Temp 98.6 F 08/18/17 15:39 Pulse 100 H 08/18/17 15:39 Resp 18 08/18/17 15:39 BP 95/64 L 08/18/17 15:39 Pulse Ox 98 08/18/17 15:39 - Labs Result Diagrams: 08/18/17 11:40 08/18/17 11:40 Labs: Laboratory Results - last 24 hr 08/18/17 08/18/17 11:40 11:40 WBC 10.3 RBC 4.10 Hgb 12.0 Hct 36.2 MCV 88.3 MCH 29.3 MCHC 33.2 RDW 14.8 H Plt Count 287 MPV 8.5 Neut % (Auto) 81.5 H Lymph % (Auto) 10.8 L [place] % (Auto) 7.3 Eos % (Auto) 0.1 Baso % (Auto) 0.3 Neut # 8.4 H Lymph # 1.1 [place] # 0.7 Eos # 0.0 Baso # 0.0 Sodium 133 Potassium 4.4 Chloride 94 L Carbon Dioxide 31 H Anion Gap 12 BUN 18 H Creatinine 1.7 H Est GFR ( Amer) 35 Est GFR (Non-Af Amer) 29 Random Glucose 101 Calcium 8.1 L Phosphorus 4.0 Magnesium 1.4 L Total Bilirubin 1.3 AST 50 H ALT 39 Alkaline Phosphatase 125 Total Protein 6.8 Albumin 3.9 Globulin 2.8 Albumin/Globulin Ratio 1.4 - EKG Data EKG Interpreted by: Myself EKG shows normal: Sinus rhythm Assessment & Plan (1) Left displaced femoral neck fracture Assessment and Plan: patient require hip replacement. I reviewed th echocardiogram with the patient. left ventricular function is normal. There is moderate LVH. The patient is at intermediate cardiovascular risk. There is no contraindication. Due to LVH. avoid hypovolemia. Status: Acute (2) Hypertension Assessment and Plan: on therapy. well controlled. Status: Acute
--- NOTE | 2017-08-18 22:07 | CARD ---
APPROVED REPORT EXAM: Two-dimensional and M-mode echocardiogram with Doppler and color Doppler. Other Information Quality : GoodRhythm : INDICATION Dizziness and Vertigo Pre-Op ALCOHOL INTOXICATION RISK FACTORS Hypertension 2D DIMENSIONS IVSd1.5 (0.7-1.1cm)LVDd3.1 (3.9-5.9cm) PWd1.0 (0.7-1.1cm)LVDs1.5 (2.5-4.0cm) FS (%) 51.7 %LVEF (%)84.1 (>50%) M-Mode DIMENSIONS Left Atrium (MM)0.96 (2.5-4.0cm)Aortic Root3.39 (2.2-3.7cm) Aortic Cusp Exc.2.13 (1.5-2.0cm) Mitral Valve MV E Cxethlxf63.6cm/sMV A Cjbzbtwv86.7cm/sE/A ratio0.8 TDI E/Lateral E'0.0E/Medial E'0.0 Tricuspid Valve TR Peak [id number]/sTR Peak [id number] LEFT VENTRICLE The left ventricle is normal size. The left ventricular function is normal. The left ventricular ejection fraction is within the normal range. There is normal LV segmental wall motion. Transmitral Doppler flow pattern is abnormal. RIGHT VENTRICLE The right ventricle is normal size. ATRIA The left atrium size is normal. The right atrium size is normal. AORTIC VALVE The aortic valve is normal in structure. MITRAL VALVE Mitral regurgitation is trace to mild. TRICUSPID VALVE There is trace to mild tricuspid regurgitation. <Conclusion> Normal LV systolic function. Diastolic dysfunction. Normal chamber size. Trace to mild MR. Mild TR.
--- NOTE | 2017-08-18 22:17 | CARD ---
APPROVED REPORT EKG Measurement Heart [id number] <Conclusion> Sinus tachycardia with premature supraventricular complexes Possible Left atrial enlargement Left anterior fascicular block Abnormal ECG
[2017-08-19 08:35] LABS: INR 0.9
[2017-08-19 08:37] LABS: BASO % 0.3 % (0.0-2.0); EOS % 0.1 % (0.0-4.0); HEMATOCRIT 35.8 % (34.0-47.0); LYMPH # 1.1 K/uL (1.0-4.3); LYMPH % 12.2 % (20.0-40.0); MEAN CELL VOLUME 88.5 fL (81.0-99.0); MEAN CORPUSCULAR HEMOGLOBIN 29.3 pg (27.0-31.0); MEAN CORPUSCULAR HGB CONC 33.1 g/dL (33.0-37.0); MONO # 0.7 K/uL (0.0-0.8); MONO % 7.5 % (0.0-10.0); NRBC % 0.2 % (0.0-2.0); RED CELL DISTRIBUTION WIDTH 14.8 % (11.5-14.5); WHITE BLOOD COUNT 9.2 K/uL (4.8-10.8)
[2017-08-19 09:04] LABS: ALB/GLOB RATIO 0.9 (1.0-2.1); BILIRUBIN,TOTAL 0.9 mg/dL (0.2-1.3); CALCIUM 8.3 mg/dl (8.6-10.4); MAGNESIUM 2.2 mg/dL (1.6-2.3); PHOSPHOROUS 2.9 mg/dL (2.5-4.5); POTASSIUM 3.7 mmol/L (3.6-5.2); TOTAL PROTEIN 7.5 g/dL (6.3-8.3)
[2017-08-19] MEDS: Sodium Chloride 0.9% 1,000 ML IV SCH ×2 (11:26→19:42)
[2017-08-19] MEDS ORDERED: Enoxaparin 30 mg Syringe SC SCH (11:45)
--- NOTE | 2017-08-19 13:58 | CP.PCM.PN ---
Subjective - Date & Time of Evaluation Date of Evaluation: 08/19/17 Time of Evaluation: 10:30 - Subjective Subjective: PGY2 medicine progress note for Dr. Brand Patient seen and examined with son at bedside. Patient admits to not wanting to eat or drink, she only wants Ensure. Patient and son aware surgery planned for 08/20/17 for repair of hip fracture. Objective - Vital Signs/Intake and Output Vital Signs (last 24 hours): Temp Pulse Resp BP Pulse Ox 98.2 F 91 H 20 98/62 L 99 08/19/17 07:00 08/19/17 07:00 08/19/17 07:00 08/19/17 10:30 08/19/17 07:00 Intake and Output: 08/19/17 08/19/17 06:59 18:59 Intake Total 420 Output Total 250 Balance 170 - Medications Medications: Current Medications Amlodipine Besylate (Norvasc) 5 mg PO DAILY [facility] Last Admin: 08/19/17 10:36 Dose: Not Given Hydrochlorothiazide (Hydrodiuril) 25 mg PO DAILY [facility] Last Admin: 08/19/17 10:36 Dose: Not Given Sodium Chloride (Sodium Chloride 0.9%) 1,000 mls @ 125 mls/hr IV .Q8H [facility] Last Admin: 08/19/17 11:26 Dose: 125 mls/hr Lisinopril (Zestril) 10 mg PO DAILY [facility] Last Admin: 08/19/17 10:36 Dose: Not Given Morphine Sulfate (Morphine) 4 mg IVP Q2 PRN PRN Reason: Pain Last Admin: 08/18/17 05:53 Dose: 4 mg Rosuvastatin Calcium (Crestor) 10 mg PO HS [facility] Last Admin: 08/18/17 21:31 Dose: 10 mg - Labs Labs: 08/19/17 08:17 08/19/17 08:17 PT 10.0 SECONDS (9.7-12.2) 08/19/17 08:17 INR 0.9 08/19/17 08:17 APTT 31 SECONDS (21-34) 08/19/17 08:17 - Constitutional Appears: No Acute Distress - Head Exam Head Exam: ATRAUMATIC - Eye Exam Eye Exam: EOMI - ENT Exam ENT Exam: Mucous Membranes Dry - Respiratory Exam Respiratory Exam: Clear to Ausculation Bilateral - Cardiovascular Exam Cardiovascular Exam: +S1, +S2 - GI/Abdominal Exam GI & Abdominal Exam: Soft. absent: Tenderness - Extremities Exam Additional comments: ext. rotation left lower extremity - Neurological Exam Neurological Exam: Alert, Awake - Psychiatric Exam Psychiatric exam: Normal Affect - Skin Skin Exam: Warm Assessment and Plan - Assessment and Plan (Free Text) Assessment: Left Femur fracture s/p fall Patient for OR tomorrow for left proximal femur fracture 08/17 Hip/Pelvis Xray Transverse oblique fracture deformity through the left proximal femur at the level of the base of the femoral neck/introchanteric region, (please read full report) Pelvis CT: acute subcapital fracture identified within left proximal femur with mild displacement. Femoral shaft is externally rotated and superiorly displaced relative to the femoral head. Chest X ray/EKG coags for pre op, Dr Torres consulted, help appreciated for pre op clearance Morphone 4mg IVP Q2 prn Knee X ray - no fracture (please read full report) Head CT - no bleed, chronic microvascular changes, stable right caudate head lacunar infarct, stable basal gangalia and cerebellar calcifications. Elevated creatinine likely due to dehydration as patient refusing to drink fluids will start IVF and continue to monitor Wrist pain Wrist Xray - degenerative changes (please read full report) Wrist CT report pending Hypertension Norvasc 5mg PO daily HCTZ 25mg PO daily Lisinopril 10mg PO daily Crestor 10mg PO HS Prophylactic Measures Lovenox 30mg SC daily- received today, held for tomorrow for OR NPO post midnight Medical management as per Dr. Brand
--- NOTE | 2017-08-19 14:54 | CT ---
CT left wrist History: Wrist swelling. Fracture. Comparison: 08/17/2017 Technique: Multiple contiguous axial images were performed through the left wrist without the use of intravenous contrast. Subsequently, sagittal and coronal reformatted images were obtained. This CT exam was performed using one or more of the following dose reduction techniques: Automated exposure control, adjustment of the mA and/or kV according to patient size, and/or use of iterative reconstruction technique. Findings: Prominent cortical irregularity seen at the level of the circumferential cortices involving the distal radius with buckling of the ulnar sided cortex at the level of the physis extending to the epiphysis and extending to the metadiaphysis at the level of the radial cortex suggestive for a fracture deformity. Punctate ossific density seen at the dorsum of the mid triquetrum bone which may represent a small avulsion injury. Additional lucency through the posterior triquetrum on the sagittal view may represent a prominent traversing vessel. Severe degenerative changes noted at the 1st carpometacarpal joint space with subchondral cyst formation as well as osteophytosis at the level of the trapezium. Degenerative changes noted at the 5th MCP joint space with subchondral sclerosis and osteophytosis. Reticulation and edema within the circumferential subcutaneous soft tissues. Few scattered calcifications seen within the volar soft tissues. Impression: 1. Prominent cortical irregularity seen at the level of the circumferential cortices involving the distal radius with buckling of the ulnar sided cortex at the level of the physis extending to the epiphysis and extending to the metadiaphysis at the level of the radial cortex suggestive for a fracture deformity. 2. Punctate ossific density seen at the dorsum of the mid triquetrum bone which may represent a small avulsion injury. Additional lucency through the posterior triquetrum on the sagittal view may represent a prominent traversing vessel. 3. Severe degenerative changes noted at the 1st carpometacarpal joint space with subchondral cyst formation as well as osteophytosis at the level of the trapezium. 4. Degenerative changes noted at the 5th MCP joint space with subchondral sclerosis and osteophytosis. 5. Reticulation and edema within the circumferential subcutaneous soft tissues. 6. Few scattered calcifications seen within the volar soft tissues.
[2017-08-19] MEDS ORDERED: Sodium Chloride 0.9% 250 ML IV ONE (15:01)
--- NOTE | 2017-08-20 07:14 | CP.PCM.PN ---
Subjective - Date & Time of Evaluation Date of Evaluation: 08/20/17 Time of Evaluation: 09:00 - Subjective Subjective: PGY2 medicine progress note for Dr. Brand Patient seen and examined with son at bedside. Patient will be going to the OR today for repair of the hip fracture with Dr. Rabago. She complains of moderate pain in her hip. She was lively and talking on her cell phone during the exam. States she still does not have much of an appetite. Objective - Vital Signs/Intake and Output Vital Signs (last 24 hours): Temp Pulse Resp BP Pulse Ox 98.8 F 80 20 137/73 100 08/20/17 04:05 08/20/17 04:05 08/20/17 04:05 08/20/17 04:05 08/19/17 23:05 Intake and Output: 08/20/17 08/20/17 06:59 18:59 Intake Total 1570 Output Total 500 Balance 1070 - Medications Medications: Current Medications Amlodipine Besylate (Norvasc) 5 mg PO DAILY [facility] Last Admin: 08/19/17 10:36 Dose: Not Given Hydrochlorothiazide (Hydrodiuril) 25 mg PO DAILY [facility] Last Admin: 08/19/17 10:36 Dose: Not Given Sodium Chloride (Sodium Chloride 0.9%) 1,000 mls @ 125 mls/hr IV .Q8H [facility] Last Admin: 08/19/17 19:42 Dose: 125 mls/hr Lisinopril (Zestril) 10 mg PO DAILY [facility] Last Admin: 08/19/17 10:36 Dose: Not Given Morphine Sulfate (Morphine) 4 mg IVP Q2 PRN PRN Reason: Pain Last Admin: 08/18/17 05:53 Dose: 4 mg Rosuvastatin Calcium (Crestor) 10 mg PO HS [facility] Last Admin: 08/19/17 21:09 Dose: 10 mg - Labs Labs: 08/19/17 08:17 08/19/17 08:17 PT 10.0 SECONDS (9.7-12.2) 08/19/17 08:17 INR 0.9 08/19/17 08:17 APTT 31 SECONDS (21-34) 08/19/17 08:17 - Constitutional Appears: Non-toxic, No Acute Distress, Chronically Ill - Head Exam Head Exam: ATRAUMATIC, NORMAL INSPECTION - Eye Exam Eye Exam: EOMI Pupil Exam: NORMAL ACCOMODATION - ENT Exam ENT Exam: Mucous Membranes Moist - Respiratory Exam Respiratory Exam: Clear to Ausculation Bilateral, NORMAL BREATHING PATTERN. absent: Respiratory Distress - Cardiovascular Exam Cardiovascular Exam: REGULAR RHYTHM, +S1, +S2 - GI/Abdominal Exam GI & Abdominal Exam: Soft, Normal Bowel Sounds. absent: Distended, Firm, Guarding, Tenderness - Extremities Exam Extremities Exam: Normal Inspection. absent: Calf Tenderness Additional comments: ext rotation of left leg - Back Exam Back Exam: NORMAL INSPECTION - Neurological Exam Neurological Exam: Alert, Awake, Oriented x3 - Skin Skin Exam: Warm Assessment and Plan - Assessment and Plan (Free Text) Assessment: Left Femur fracture s/p fall Patient for OR today for left proximal femur fracture repair with Dr. Rabago - ok for OR today, labs improved Ortho consulted, Dr. Rabago help appreciated Per Dr. Renee (cardiology) - The patient is at intermediate cardiovascular risk. There is no contraindication. 08/17 Hip/Pelvis Xray Transverse oblique fracture deformity through the left proximal femur at the level of the base of the femoral neck/introchanteric region, (please read full report) Pelvis CT: acute subcapital fracture identified within left proximal femur with mild displacement. Femoral shaft is externally rotated and superiorly displaced relative to the femoral head. Chest X ray/EKG coags for pre op, Dr Torres consulted, help appreciated for pre op clearance Morphone 4mg IVP Q2 prn Knee X ray - no fracture (please read full report) Head CT - no bleed, chronic microvascular changes, stable right caudate head lacunar infarct, stable basal gangalia and cerebellar calcifications. Elevated creatinine likely due to dehydration as patient refusing to drink fluids, improving today continue IVF at 125 cc/hour Wrist pain Wrist Xray - degenerative changes (please read full report) Wrist CT - suggestive for fracture of the dital radius along with avulsion fracture injury to the mid triquetrium Brace in place appreciate ortho recs Hypertension Norvasc 5mg PO daily HCTZ 25mg PO daily Lisinopril 10mg PO daily Crestor 10mg PO HS Hypokalemia K 3.3 Kcl IV 40 meq ordered Mg wnl Prophylactic Measures Lovenox 30mg SC daily- held for OR NPO until after surgery Medical management as per Dr. Brand
[2017-08-20 07:51] LABS: HEMATOCRIT 35.2 % (34.0-47.0); MEAN CELL VOLUME 88.5 fL (81.0-99.0); MEAN CORPUSCULAR HEMOGLOBIN 30.2 pg (27.0-31.0); MEAN CORPUSCULAR HGB CONC 34.1 g/dL (33.0-37.0); MEAN PLATELET VOLUME 8.8 fL (7.2-11.7); RED CELL DISTRIBUTION WIDTH 14.5 % (11.5-14.5); WHITE BLOOD COUNT 6.9 K/uL (4.8-10.8)
[2017-08-20 08:27] LABS: ALB/GLOB RATIO 1.3 (1.0-2.1); BILIRUBIN,TOTAL 1.2 mg/dL (0.2-1.3); CALCIUM 8.5 mg/dl (8.6-10.4); POTASSIUM 3.3 mmol/L (3.6-5.2); TOTAL PROTEIN 6.1 g/dL (6.3-8.3)
[2017-08-20] MEDS ORDERED: Potassium Chloride 20 mEq/15 ml LIQ UD PO ONE (10:15)
[2017-08-20] MEDS: Sodium Chloride 0.9% 1,000 ML IV SCH ×2 (13:57→21:24)
[2017-08-20] MEDS ORDERED: Propofol 10 mg/ml Inj (20 ML) ONE (14:11)
[2017-08-20] MEDS ORDERED: Morphine 1 mg/ml preservative-free Inj(Duramorph) ONE (14:49)
[2017-08-20] MEDS ORDERED: Bupivacaine HCl 0.5% PF (10 ml) Inj ONE (14:49)
[2017-08-20] MEDS ORDERED: Lactated Ringer's 1,000 ML IV ONE ×3 (14:50→18:20)
[2017-08-20] MEDS: ceFAZolin IV 1 gm in Dextrose 1 GM/50 ML BAG IVPB ONE ×2 (15:00→15:35)
[2017-08-20] MEDS ORDERED: Etomidate 20 mg/10ml Inj IV ONE (15:15)
[2017-08-20] MEDS: Bacitracin 150,000 UNIT in Sodium Chloride 0.9% Irrig 3,000 ML IR SCH ×2 (15:28→15:55)
[2017-08-20] MEDS ORDERED: Sodium Chloride 0.9% 1,000 ML IV ONE ×2 (17:30→18:00)
[2017-08-20] MEDS ORDERED: Neostigmine Methylsulfate 3mg/3ml Syringe IV ONE (17:50)
[2017-08-20] MEDS: Bacitracin Ointment 30 GM TUBE ONE ×2 (17:55→18:00)
[2017-08-20] MEDS ORDERED: HYDROmorphone 0.5 mg/0.5 ml ISec IVP PRN (18:23)
--- NOTE | 2017-08-20 18:24 | PCM.SURG1 ---
Surgeon's Initial Post Op Note - Surgeon's Notes Surgeon: Ciara Rabago MD [employer] Boat And Barge Loader: Christie Pastrana PA-C Type of Anesthesia: General Endo, Spinal Anesthesia Administered By: Dr. Viera Pre-Operative Diagnosis: Left femoral neck fx Operative Findings: same Post-Operative Diagnosis: same Operation Performed: 1. Left anterior total hip replacement. 2. femoral neck osteotomy. 3. release iliopsoas. 4. autograft bone graft to acetabulum. 5. fluoroscopy interpretation Specimen/Specimens Removed: femoral neck Estimated Blood Loss: EBL {In ML}: 200 Blood Products Given: N/A Drains Used: No Drains Post-Op Condition: Fair Date of Surgery/Procedure: 08/20/17 Time of Surgery/Procedure: 18:26
[2017-08-20] MEDS: ceFAZolin IV 2 gm in Dextrose 2 GM/50 ML BAG IVPB SCH (21:24)
--- NOTE | 2017-08-21 06:24 | CP.PCM.PN ---
Subjective - Date & Time of Evaluation Date of Evaluation: 08/21/17 Time of Evaluation: 06:22 - Subjective Subjective: Patient states she has pain in her hip. Denies CP/SOb/dizziness/numbness/ tingling Objective - Vital Signs/Intake and Output Vital Signs (last 24 hours): Temp Pulse Resp BP Pulse Ox 97.8 F 96 H 20 116/68 96 08/21/17 04:00 08/21/17 04:00 08/21/17 04:00 08/21/17 04:00 08/21/17 04:00 Intake and Output: 08/20/17 08/21/17 18:59 06:59 Intake Total 500 Output Total 800 475 Balance -800 25 - Medications Medications: Current Medications Amlodipine Besylate (Norvasc) 5 mg PO DAILY [facility] Last Admin: 08/20/17 10:25 Dose: 5 mg Docusate Sodium (Colace) 100 mg PO BID [facility] Enoxaparin Sodium (Lovenox) 30 mg SC Q24H [facility] Hydrochlorothiazide (Hydrodiuril) 25 mg PO DAILY [facility] Last Admin: 08/20/17 10:24 Dose: 25 mg Sodium Chloride (Sodium Chloride 0.9%) 1,000 mls @ 125 mls/hr IV .Q8H [facility] Last Admin: 08/20/17 21:24 Dose: 125 mls/hr Cefazolin Sodium/Dextrose (Ancef Iv 2 Gm Duplex) 2 gm in 50 mls @ 100 mls/hr IVPB Q8H [facility] Stop: 08/21/17 06:29 Last Admin: 08/20/17 21:24 Dose: 100 mls/hr Lisinopril (Zestril) 10 mg PO DAILY [facility] Last Admin: 08/20/17 10:24 Dose: 10 mg Morphine Sulfate (Morphine) 4 mg IVP Q2 PRN PRN Reason: Pain Last Admin: 08/18/17 05:53 Dose: 4 mg Rosuvastatin Calcium (Crestor) 10 mg PO HS [facility] Last Admin: 08/19/17 21:09 Dose: 10 mg - Labs Labs: 08/20/17 07:44 08/20/17 07:44 PT 10.0 SECONDS (9.7-12.2) 08/19/17 08:17 INR 0.9 08/19/17 08:17 APTT 31 SECONDS (21-34) 08/19/17 08:17 - Extremities Exam Additional comments: LLE: +ROM ankle/toes, sensation intact, +DP/PT pulses, calves soft NT neg homans +venodynes LUE: splint intact, sugar tong splint applied in PACU, +ROM fingers, sensation intact Assessment and Plan (1) Left displaced femoral neck fracture Assessment & Plan: POD#1 s/p left THR anterior approach -PT/OT VTE proph d/c planning for 08/22 f/u labs d/w Dr. Rabago, agrees with above Status: Acute (2) Fracture of left distal radius Assessment & Plan: sugar tong splint non operative minimally displaced cast when swelling decreased Status: Acute
[2017-08-21] MEDS: ceFAZolin IV 2 gm in Dextrose 2 GM/50 ML BAG IVPB SCH (06:32)
[2017-08-21] MEDS: Sodium Chloride 0.9% 1,000 ML IV SCH ×4 (06:34→19:30)
[2017-08-21 09:34] LABS: BASO % 0.1 % (0.0-2.0); MONO # 1.1 K/uL (0.0-0.8); WHITE BLOOD COUNT 7.3 K/uL (4.8-10.8)
[2017-08-21 09:42] LABS: HEMATOCRIT 25.3 % (34.0-47.0); LYMPH # 0.8 K/uL (1.0-4.3); LYMPH % 10.8 % (20.0-40.0); MEAN CELL VOLUME 89.5 fL (81.0-99.0); MEAN CORPUSCULAR HEMOGLOBIN 30.8 pg (27.0-31.0); MEAN CORPUSCULAR HGB CONC 34.5 g/dL (33.0-37.0); MONO % 15.1 % (0.0-10.0); RED CELL DISTRIBUTION WIDTH 14.9 % (11.5-14.5)
[2017-08-21 09:57] LABS: ALB/GLOB RATIO 1.2 (1.0-2.1); ALKALINE PHOSPHATASE 55 U/L (38-126); ALT/SGPT 17 U/L (9-52); AST/SGOT 30 U/L (14-36); BILIRUBIN,TOTAL 0.7 mg/dL (0.2-1.3); BLOOD UREA NITROGEN 24 mg/dL (7-17); CALCIUM 7.3 mg/dl (8.6-10.4); CARBON DIOXIDE 27 mmol/L (22-30); CHLORIDE 95 mmol/L (98-107); GFR AFRICAN-AMERICAN > 60; GLUCOSE,RANDOM 113 mg/dL (65-105); MAGNESIUM 1.6 mg/dL (1.6-2.3); PHOSPHOROUS 3.5 mg/dL (2.5-4.5); POTASSIUM 3.7 mmol/L (3.6-5.2); SODIUM 127 mmol/L (132-148); TOTAL PROTEIN 4.9 g/dL (6.3-8.3)
--- NOTE | 2017-08-21 10:14 | RAD ---
PROCEDURE: HISTORY: pt in pacu s/sp THR COMPARISON: 08/17/2017 TECHNIQUE: Two-views both fairly frontal in projection. No true frog-leg suggested FINDINGS: Patient is status post total left hip prosthesis prior femoral fracture. The acetabular component appears centered to the acetabular fossa. The femoral distal stem centered to the central medullary cavity. Overlying mottled subcutaneous gas consistent recent postop status. Minimal concomitant osseous productive changes most superolateral most inferomedial acetabular aspects -background present noted. Right hip arthrosis -similar. Prominent inferior sclerotic marginal osteophytes with intervening marked disc space narrowing. IMPRESSION: Status post recent left hip arthroplasty -as above
[2017-08-21] MEDS ORDERED: Sodium Chloride 0.9% 500 ML IV ONE (10:15)
--- NOTE | 2017-08-21 13:57 | RAD ---
PROCEDURE: HISTORY: Fluoroscopy for left hip arthroplasty treatment of a displaced left subcapital femoral fracture COMPARISON: CT 08/17/2017 TECHNIQUE: Total fluoroscopic time utilized during the procedure: 12.9 seconds. Total dose 1.55 mGy cm squared FINDINGS: Submitted images from the current procedure: 6 Please refer to the physician's notes performing the procedure. IMPRESSION: Less than 1 hour fluoroscopic time utilized during performance of the procedure
--- NOTE | 2017-08-21 16:33 | CP.PCM.PN ---
Subjective - Date & Time of Evaluation Date of Evaluation: 08/21/17 Time of Evaluation: 10:40 - Subjective Subjective: PGY-[address] Brand Patient seen and examined at bedside. No acute events overnight. Patient complains of pain at surgical site. Pain is controlled with pain medication. Patient denies fever, chills, headache, cough, shortness of breath, chest pain, nausea, vomiting, or diarrhea. Objective - Vital Signs/Intake and Output Vital Signs (last 24 hours): Temp Pulse Resp BP Pulse Ox 99 F 89 18 110/64 99 08/21/17 15:41 08/21/17 15:41 08/21/17 15:41 08/21/17 15:41 08/21/17 15:41 Intake and Output: 08/21/17 08/21/17 06:59 18:59 Intake Total 500 Output Total 475 Balance 25 - Medications Medications: Current Medications Amlodipine Besylate (Norvasc) 5 mg PO DAILY [facility] Last Admin: 08/21/17 09:31 Dose: 5 mg Docusate Sodium (Colace) 100 mg PO BID [facility] Last Admin: 08/21/17 09:32 Dose: 100 mg Enoxaparin Sodium (Lovenox) 40 mg SC Q24H [facility] Hydrochlorothiazide (Hydrodiuril) 25 mg PO DAILY [facility] Last Admin: 08/21/17 09:36 Dose: 25 mg Sodium Chloride (Sodium Chloride 0.9%) 1,000 mls @ 125 mls/hr IV .Q8H [facility] Last Admin: 08/21/17 12:47 Dose: 125 mls/hr Lisinopril (Zestril) 10 mg PO DAILY [facility] Last Admin: 08/21/17 09:32 Dose: 10 mg Morphine Sulfate (Morphine) 1 mg IVP Q4 PRN PRN Reason: Pain, severe (8-10) Last Admin: 08/21/17 11:39 Dose: 1 mg Rosuvastatin Calcium (Crestor) 10 mg PO HS [facility] Last Admin: 08/19/17 21:09 Dose: 10 mg - Labs Labs: 08/21/17 09:28 08/21/17 09:28 PT 10.0 SECONDS (9.7-12.2) 08/19/17 08:17 INR 0.9 08/19/17 08:17 APTT 31 SECONDS (21-34) 08/19/17 08:17 - Constitutional Appears: Non-toxic, No Acute Distress - Head Exam Head Exam: ATRAUMATIC, NORMOCEPHALIC - Eye Exam Eye Exam: EOMI, Normal appearance - ENT Exam ENT Exam: Mucous Membranes Moist - Neck Exam Neck Exam: Normal Inspection - Respiratory Exam Respiratory Exam: Clear to Ausculation Bilateral, NORMAL BREATHING PATTERN. absent: Respiratory Distress - Cardiovascular Exam Cardiovascular Exam: REGULAR RHYTHM, +S1, +S2 - GI/Abdominal Exam GI & Abdominal Exam: Soft, Normal Bowel Sounds - Extremities Exam Additional comments: Left thigh wound dressing clean, dry, and intact. No active bleeding appreciated - Neurological Exam Neurological Exam: Alert, Awake, Oriented x3 - Psychiatric Exam Psychiatric exam: Normal Affect, Normal Mood - Skin Skin Exam: Dry, Warm Assessment and Plan - Assessment and Plan (Free Text) Assessment: Left Femur fracture S/P left proximal femur fracture repair POD#1 Follow orthopedic recommendations Resumed diet 08/17 Hip/Pelvis Xray Transverse oblique fracture deformity through the left proximal femur at the level of the base of the femoral neck/introchanteric region, (please read full report) Pelvis CT: acute subcapital fracture identified within left proximal femur with mild displacement. Femoral shaft is externally rotated and superiorly displaced relative to the femoral head. Chest X ray/EKG coags for pre op, Dr Torres consulted, help appreciated for pre op clearance Morphone 4mg IVP Q2 prn Knee X ray - no fracture (please read full report) Head CT - no bleed, chronic microvascular changes, stable right caudate head lacunar infarct, stable basal gangalia and cerebellar calcifications Elevated creatinine likely due to dehydration as patient refusing to drink fluids, improving today continue IVF at 125 cc/hour Wrist pain Wrist Xray - degenerative changes (please read full report) Wrist CT - suggestive for fracture of the distal radius along with avulsion fracture injury to the mid triquetrium Ortho recommends sugar tong splint No surgical intervention indicated, cast when swelling decreased Hypertension Norvasc 5mg PO daily HCTZ 25mg PO daily Lisinopril 10mg PO daily Crestor 10mg PO HS Hypokalemia K 3.7 Improving Mg wnl Prophylactic Measures Lovenox Protonix PT and OT Medical management as per Dr. Brand
[2017-08-21] MEDS ORDERED: Enoxaparin 30 mg Syringe SC SCH (17:00)
[2017-08-21] MEDS: Enoxaparin 40 mg Syringe SC SCH (17:29)
--- NOTE | 2017-08-21 22:33 | OP ---
PROCEDURE DATE: 08/20/2017 PREOPERATIVE DIAGNOSES: 1. Garden IV displaced subcapital fracture of the left hip. 2. Osteoarthritis of the left hip, preexisting. POSTOPERATIVE DIAGNOSES: 1. Garden IV subcapital displaced fracture of the left hip. 2. Preexisting primary osteoarthritis of the left hip. 3. Synovitis of the left hip. 4. Iliopsoas tendon contracture. PROCEDURES: 1. Left total hip replacement arthroplasty, anterior approach. 2. Femoral neck osteotomy planned as a separate procedure because the problem with leg length inequality and the lumbar scoliosis that this patient exhibiting. 3. Release of iliopsoas tendon. 4. Autograft bone graft to the acetabulum. SURGEON: Diogenes Rabago MD MOTEL FRONT DESK CLERK: Maria D Rondon, certified registered nursing first coat sander. SECOND PAPER CAP MACHINE OPERATOR: Eloy Kauffman PA-C TYPE OF ANESTHESIA: Spinal and general anesthesia. ANESTHESIA ADMINISTERED BY: Dr. Granda. ESTIMATED BLOOD LOSS: Approximately 200 mL. COMPLICATIONS: No complications. DRAINS: No drains. OPERATIVE INDICATION: Mali Javier is an 82-year-old woman who had sustained a fall on 08/17/2017 at home, injuring her wrist and her hip. The patient unfortunately sustained a displaced subcapital fracture of the left femur. The patient was admitted to Dr. Brand and Dr. Steven Nuno was called on service call. Dr. Nuno asked for consultation and ultimately transferred to my service as department. Dr. Nuno is essentially an upper extremity specialist. Pros, cons, risks, and benefits of hip replacement arthroplasty were discussed. Alternative measures were discussed including benign neglect and open reduction of the fracture which would not be indicated because of the patient's vascular status. The possibility of mechanical failure, infection, nerve injury, recurrent dislocation, thromboembolic disease, secondary or tertiary surgery was discussed. The patient can no longer withstand the discomfort and wished the surgery to be accomplished. A thorough discussion of the pros, cons, risks and benefits was accomplished. After discussing the possibility of mechanical failure, infection, thromboembolic disease; possibility of secondary or tertiary surgery; the possibility of leg length inequality and return of dislocation, etc. were discussed. The patient was aware the risks and benefits, alternative modalities, wished the surgery to be accomplished. DESCRIPTION OF PROCEDURE: After having obtained informed consent in the above fashion; after the satisfactory induction of the anesthetic; after having identified the side, site, and procedure and a critical pause/time-out, the patient was identified as [place] Javier, was placed in the supine position with all bony prominences well padded. The patient was placed in the [facility] traction positioner. Under the surgeon's direction, the fluoroscope was positioned, video images were generated, and therapeutic decisions were made therefrom. This having been accomplished, the fracture is brought out at length and verification of position is offered on image intensification views. After sterilely prepping and draping the left lower extremity and the left hip, an incision was described 1 fingerbreadth distal to the ASIS and 4 fingerbreadths distal to that. An incision was made obliquely superficial to the tensor fascia femoris muscle. After sterilely prepping and draping, the skin incision was carried down through the skin, subcutaneous tissue, the fascia on the TFL was identified, this was divided and the belly of the tensor fascia femoris was brought down from the investing fascia. The Medacta Weitlaner retractor was placed and now the plane just posteriorly to the posterior aspect of the rectus femoris muscle belly was developed as well. The Weitlaner was placed deeper and is parallel to the plane of the hip joint. The fascia was identified and divided. The anterior branch of the lateral femoral circumflex vessels were identified. This was controlled with hemostasis with the Aquamantys and with ligature. This having been accomplished, a triangular capsulotomy was accomplished. The reflected head of rectus femoris had been divided and an incision is described from the margin of the acetabulum skirting the capsularis musculature and brought back to the trochanter. This having been accomplished, the flap was attached. The head is identified and with rotation of the hip, the femoral neck osteotomy is accomplished after verification is accomplished on image intensification. This having been accomplished, the wound is thoroughly irrigated. Femoral neck osteotomy having planned virtually preoperatively and intraoperatively, the femoral neck osteotomy had been accomplished. Femoral neck osteotomy having been accomplished, the wound is thoroughly irrigated and at this point, arthrotomy and synovectomy of the hip joint is accomplished. Arthrotomy and synovectomy having been accomplished, reaming is carried out the femoral head sizing to 52 mm and the reaming is carried out sequentially to 54 mm in the appropriate abduction and anteversion planes, approximately 45 degrees of abduction and 20 degrees of anteversion. This having been accomplished, the reamings are denuded of articular cartilage for bone grafting. This having been accomplished, the trial cup was placed and found to acceptable in fit and orientation 54 mm. This having been accomplished, the autograft bone grating is accomplished to the acetabulum. The Medacta cup was impacted, verification of position is offered and the cup was impacted and found to pass the pelvic lift test. This having been accomplished, attention was turned to the femur. The was placed back into the femur. The femoral neck is rotated. There was found to be a contracture of the iliopsoas tendon and the pubofemoral ligament. At this point in time, ligament releases were carried out from the iliofemoral ligament through the ischiofemoral ligament to the pubofemoral ligament. This having been accomplished with the ligament release is having been accomplished, the canal was found using the joan and the rasp. Sequential broaching is carried out to a #5 noncemented component. Broach is left in and trailing is accomplished with a -3.5 head and outer bearing. The hip was reduced and is found to be stable in all planes. It should be noted that because of the contractures around the femur, the iliofemoral, pubofemoral and ischiofemoral ligament are released and the iliopsoas tendon is released as well. This having been accomplished, the canal having been found, the hip is found to be stable in all planes, the hip is removed, autograft bone grafting have been accomplished to the acetabulum prior to cup impaction. This having been accomplished, the broach is removed. The femur is again exposed and delivered into the wound and the #5 collared stem is introduced. The #5 collared stem is impacted. Trailing is again accomplished with -3.5 ceramic followed by the metallic outer bearing followed by the polyethylene outer bearing. This having been accomplished, the hip was reduced and found to be stable in all planes. The wound is thoroughly irrigated. Great care is to accomplish hemostasis, which is accomplished with the Aquamantys. Hemostasis having been accomplished, the wound was thoroughly irrigated. The fascia was closed with 0 Quill on the tensor fascia femoris followed by Quill, Vicryl and yohannes for the skin. The compression dressing is applied. It should be noted that approximately 200 mL of blood loss realized. The [place] Watt compression dressing is applied. Postoperative x-rays revealed acceptable position of the construct. It should be noted that Maria D Rondon, the certified registered nursing first coat sander was critical to the accomplishment of the operative goal. Diogenes Rabago MD
[2017-08-22 06:58] LABS: BASO % 0.2 % (0.0-2.0); HEMATOCRIT 22.4 % (34.0-47.0); LYMPH # 1.1 K/uL (1.0-4.3); LYMPH % 11.2 % (20.0-40.0); MEAN CELL VOLUME 88.6 fL (81.0-99.0); MEAN CORPUSCULAR HEMOGLOBIN 30.2 pg (27.0-31.0); MEAN CORPUSCULAR HGB CONC 34.1 g/dL (33.0-37.0); MEAN PLATELET VOLUME 9.7 fL (7.2-11.7); MONO # 1.6 K/uL (0.0-0.8); MONO % 15.4 % (0.0-10.0); WHITE BLOOD COUNT 10.2 K/uL (4.8-10.8)
--- NOTE | 2017-08-22 07:40 | CP.PCM.PN ---
Subjective - Date & Time of Evaluation Date of Evaluation: 08/22/17 Time of Evaluation: 07:25 - Subjective Subjective: S- encounter accomplished in prescence of DR Mittal, PGY-1/ pt comfortable No post op discomfort! Objective - Vital Signs/Intake and Output Vital Signs (last 24 hours): Temp Pulse Resp BP Pulse Ox 99.2 F 97 H 20 106/58 L 96 08/21/17 23:35 08/21/17 23:35 08/21/17 23:35 08/21/17 23:35 08/21/17 23:35 Intake and Output: 08/22/17 08/22/17 06:59 18:59 Intake Total 1320 Output Total 200 Balance 1120 - Medications Medications: Current Medications Amlodipine Besylate (Norvasc) 5 mg PO DAILY [facility] Last Admin: 08/21/17 09:31 Dose: 5 mg Docusate Sodium (Colace) 100 mg PO BID [facility] Last Admin: 08/21/17 17:29 Dose: 100 mg Enoxaparin Sodium (Lovenox) 40 mg SC Q24H [facility] Last Admin: 08/21/17 17:29 Dose: 40 mg Hydrochlorothiazide (Hydrodiuril) 25 mg PO DAILY [facility] Last Admin: 08/21/17 09:36 Dose: 25 mg Sodium Chloride (Sodium Chloride 0.9%) 1,000 mls @ 125 mls/hr IV .Q8H [facility] Last Admin: 08/21/17 19:30 Dose: 125 mls/hr Lisinopril (Zestril) 10 mg PO DAILY [facility] Last Admin: 08/21/17 09:32 Dose: 10 mg Morphine Sulfate (Morphine) 1 mg IVP Q4 PRN PRN Reason: Pain, severe (8-10) Last Admin: 08/21/17 11:39 Dose: 1 mg Pantoprazole Sodium (Protonix Ec Tab) 40 mg PO DAILY [facility] Rosuvastatin Calcium (Crestor) 10 mg PO HS [facility] Last Admin: 08/21/17 21:46 Dose: 10 mg - Labs Labs: 08/22/17 06:31 08/21/17 09:28 PT 10.0 SECONDS (9.7-12.2) 08/19/17 08:17 INR 0.9 08/19/17 08:17 APTT 31 SECONDS (21-34) 08/19/17 08:17 - Skin Skin Exam: Normal Color Additional comments: Obj dressing dry and intact N/V intact minimal post op discomfort otthopedically stable 'no evfidsence fpor thromboembolic disease Assessment and Plan - Assessment and Plan (Free Text) Assessment: A- s/p L THR for displaced subcapital fx L hip P- orthopedically strable for d/c today Full weigfth bearing
--- NOTE | 2017-08-22 09:24 | CP.PCM.PN ---
Subjective - Date & Time of Evaluation Date of Evaluation: 08/22/17 Time of Evaluation: 07:00 - Subjective Subjective: Medicine Progress Note for Dr. Brand Patient seen and examined at bedside. No acute events overnight. Patient is participating in physical therapy and actively using incentive spirometry. Patient still has poor po intake. She denies having fever, chills, shortness of breath, chest pain, nausea, or vomiting. Objective - Vital Signs/Intake and Output Vital Signs (last 24 hours): Temp Pulse Resp BP Pulse Ox 99 F 94 H 20 115/65 100 08/22/17 07:00 08/22/17 07:00 08/22/17 07:00 08/22/17 07:00 08/22/17 07:00 Intake and Output: 08/22/17 08/22/17 06:59 18:59 Intake Total 1320 Output Total 200 Balance 1120 - Medications Medications: Current Medications Amlodipine Besylate (Norvasc) 5 mg PO DAILY [facility] Last Admin: 08/21/17 09:31 Dose: 5 mg Docusate Sodium (Colace) 100 mg PO BID [facility] Last Admin: 08/21/17 17:29 Dose: 100 mg Enoxaparin Sodium (Lovenox) 40 mg SC Q24H [facility] Last Admin: 08/21/17 17:29 Dose: 40 mg Hydrochlorothiazide (Hydrodiuril) 25 mg PO DAILY [facility] Last Admin: 08/21/17 09:36 Dose: 25 mg Sodium Chloride (Sodium Chloride 0.9%) 1,000 mls @ 125 mls/hr IV .Q8H [facility] Last Admin: 08/21/17 19:30 Dose: 125 mls/hr Lisinopril (Zestril) 10 mg PO DAILY [facility] Last Admin: 08/21/17 09:32 Dose: 10 mg Morphine Sulfate (Morphine) 1 mg IVP Q4 PRN PRN Reason: Pain, severe (8-10) Last Admin: 08/21/17 11:39 Dose: 1 mg Pantoprazole Sodium (Protonix Ec Tab) 40 mg PO DAILY [facility] Rosuvastatin Calcium (Crestor) 10 mg PO HS [facility] Last Admin: 08/21/17 21:46 Dose: 10 mg - Labs Labs: 08/22/17 06:31 08/21/17 09:28 PT 10.0 SECONDS (9.7-12.2) 08/19/17 08:17 INR 0.9 08/19/17 08:17 APTT 31 SECONDS (21-34) 08/19/17 08:17 - Constitutional Appears: Non-toxic, No Acute Distress - Head Exam Head Exam: ATRAUMATIC, NORMOCEPHALIC - Eye Exam Eye Exam: Normal appearance - ENT Exam ENT Exam: Mucous Membranes Moist - Neck Exam Neck Exam: Normal Inspection - Respiratory Exam Respiratory Exam: Clear to Ausculation Bilateral, NORMAL BREATHING PATTERN. absent: Respiratory Distress - Cardiovascular Exam Cardiovascular Exam: REGULAR RHYTHM, +S1, +S2 - Extremities Exam Additional comments: Left thigh wound dressing clean, dry, and intact. No active bleeding appreciated - Neurological Exam Neurological Exam: Alert, Awake, Oriented x3 - Psychiatric Exam Psychiatric exam: Normal Affect, Normal Mood - Skin Skin Exam: Dry, Warm Assessment and Plan - Assessment and Plan (Free Text) Assessment: Anemia Hgb dropped from 8.7 yesterday to 7.7 today No reported hematemesis, hematochezia, or melena Two units of PRBC to be transfused Follow up CBC after transfusion Left Femur fracture S/P left proximal femur fracture repair POD#2 Resumed diet Follow up with Dr. Rabago after first week of September 2017 Elevated creatinine likely due to dehydration as patient refusing to drink fluids, improving today continue IVF at 125 cc/hour Wrist pain Wrist Xray - degenerative changes (please read full report) Wrist CT - suggestive for fracture of the distal radius along with avulsion fracture injury to the mid triquetrium Ortho recommends sugar tong splint No surgical intervention indicated, cast when swelling decreased Hypertension Norvasc 5mg PO daily HCTZ 25mg PO daily Lisinopril 10mg PO daily Crestor 10mg PO HS Hypokalemia, resolved K 4.1, today Prophylactic Measures Lovenox Protonix PT and OT Discharge patient once Hgb stabilized Medical management as per Dr. Brand
[2017-08-22 09:58] LABS: CALCIUM 7.2 mg/dl (8.6-10.4); GFR AFRICAN-AMERICAN > 60; GLUCOSE,RANDOM 101 mg/dL (65-105); TOTAL PROTEIN 4.7 g/dL (6.3-8.3)
[2017-08-22 10:00] LABS: ALB/GLOB RATIO 1.1 (1.0-2.1); ALKALINE PHOSPHATASE 50 U/L (38-126); ALT/SGPT 14 U/L (9-52); AST/SGOT 34 U/L (14-36); BLOOD UREA NITROGEN 21 mg/dL (7-17); CARBON DIOXIDE 24 mmol/L (22-30); CHLORIDE 103 mmol/L (98-107); MAGNESIUM 1.7 mg/dL (1.6-2.3); PHOSPHOROUS 2.8 mg/dL (2.5-4.5); POTASSIUM 4.1 mmol/L (3.6-5.2); SODIUM 130 mmol/L (132-148)
--- NOTE | 2017-08-22 10:49 | CP.PCM.PN ---
Subjective - Date & Time of Evaluation Date of Evaluation: 08/22/17 Time of Evaluation: 10:46 - Subjective Subjective: Patient states she has no pain right now, but has occasional pain in her left hip. Denies wrist pain. Denies CP/SOB/dizziness Objective - Vital Signs/Intake and Output Vital Signs (last 24 hours): Temp Pulse Resp BP Pulse Ox 99 F 94 H 20 115/65 100 08/22/17 07:00 08/22/17 07:00 08/22/17 07:00 08/22/17 07:00 08/22/17 07:00 Intake and Output: 08/22/17 08/22/17 06:59 18:59 Intake Total 1320 Output Total 200 Balance 1120 - Medications Medications: Current Medications Amlodipine Besylate (Norvasc) 5 mg PO DAILY [facility] Last Admin: 08/21/17 09:31 Dose: 5 mg Docusate Sodium (Colace) 100 mg PO BID [facility] Last Admin: 08/21/17 17:29 Dose: 100 mg Enoxaparin Sodium (Lovenox) 40 mg SC Q24H [facility] Last Admin: 08/21/17 17:29 Dose: 40 mg Hydrochlorothiazide (Hydrodiuril) 25 mg PO DAILY [facility] Last Admin: 08/21/17 09:36 Dose: 25 mg Sodium Chloride (Sodium Chloride 0.9%) 1,000 mls @ 125 mls/hr IV .Q8H [facility] Last Admin: 08/21/17 19:30 Dose: 125 mls/hr Lisinopril (Zestril) 10 mg PO DAILY [facility] Last Admin: 08/21/17 09:32 Dose: 10 mg Morphine Sulfate (Morphine) 1 mg IVP Q4 PRN PRN Reason: Pain, severe (8-10) Last Admin: 08/21/17 11:39 Dose: 1 mg Pantoprazole Sodium (Protonix Ec Tab) 40 mg PO DAILY [facility] Rosuvastatin Calcium (Crestor) 10 mg PO HS [facility] Last Admin: 08/21/17 21:46 Dose: 10 mg - Labs Labs: 08/22/17 06:31 08/22/17 06:31 PT 10.0 SECONDS (9.7-12.2) 08/19/17 08:17 INR 0.9 08/19/17 08:17 APTT 31 SECONDS (21-34) 08/19/17 08:17 - Extremities Exam Additional comments: Left hip dressing changed. Small amount serous drainage, now dry. No erythema. + ROM ankle DF/PF/toes flex/ext, but slow to move. +DP/PT pulses calves soft NT neg homans LUE splint intact, +_ROM fingers flex/ext, sensation intact, fingers warm Assessment and Plan (1) Left displaced femoral neck fracture Assessment & Plan: POD#2 s/p left THR -PT/OT-VTE proph -d/c planning, ortho stable for d/c after transfusion -f/u Dr. Rabago approx 10 days call for appointment -[facility], [facility] LLE -d/w Dr. Rabago, agrees with above Status: Acute (2) Fracture of left distal radius Assessment & Plan: continue splint at all times Status: Acute
[2017-08-22] MEDS: Pantoprazole 40 mg EC Tab PO SCH (14:21)
[2017-08-22] MEDS: Sodium Chloride 0.9% 1,000 ML IV SCH ×2 (15:39→22:59)
[2017-08-22] MEDS: Enoxaparin 40 mg Syringe SC SCH (22:59)
[2017-08-22 23:07] VITALS: RESP 20
[2017-08-23 00:58] LABS: HEMATOCRIT 28.7 % (34.0-47.0); MEAN CORPUSCULAR HEMOGLOBIN 29.4 pg (27.0-31.0); MEAN CORPUSCULAR HGB CONC 34.3 g/dL (33.0-37.0); MEAN PLATELET VOLUME 8.6 fL (7.2-11.7); WHITE BLOOD COUNT 11.5 K/uL (4.8-10.8)
[2017-08-23 01:00] LABS: MEAN CELL VOLUME 85.7 fL (81.0-99.0)
[2017-08-23] MEDS: Sodium Chloride 0.9% 1,000 ML IV SCH ×2 (03:07→03:08)
[2017-08-23 08:38] LABS: BASO % 0.2 % (0.0-2.0); EOS % 0.2 % (0.0-4.0); HEMATOCRIT 29.1 % (34.0-47.0); LYMPH % 9.5 % (20.0-40.0); MEAN CELL VOLUME 85.7 fL (81.0-99.0); MEAN CORPUSCULAR HEMOGLOBIN 30.6 pg (27.0-31.0); MEAN CORPUSCULAR HGB CONC 35.7 g/dL (33.0-37.0); MONO # 1.5 K/uL (0.0-0.8); MONO % 14.6 % (0.0-10.0); NRBC % 0.1 % (0.0-2.0); PLATELET COUNT 195 K/uL (130-400); RED CELL DISTRIBUTION WIDTH 15.1 % (11.5-14.5); WHITE BLOOD COUNT 10.4 K/uL (4.8-10.8)
[2017-08-23 08:43] VITALS: PULSE 89
[2017-08-23 09:14] LABS: NEUTROPHIL 80 % (50-75); TOTAL CELLS COUNTED 100
[2017-08-23 09:15] LABS: LARGE PLATELETS PRESENT; SPHEROCYTES SLIGHT
[2017-08-23 09:55] LABS: ALB/GLOB RATIO 1.1 (1.0-2.1); ALKALINE PHOSPHATASE 85 U/L (38-126); ALT/SGPT 23 U/L (9-52); AST/SGOT 35 U/L (14-36); BILIRUBIN,TOTAL 1.2 mg/dL (0.2-1.3); BLOOD UREA NITROGEN 13 mg/dL (7-17); CALCIUM 7.7 mg/dl (8.6-10.4); CARBON DIOXIDE 27 mmol/L (22-30); CHLORIDE 98 mmol/L (98-107); GFR AFRICAN-AMERICAN > 60; GLUCOSE,RANDOM 86 mg/dL (65-105); MAGNESIUM 1.7 mg/dL (1.6-2.3); POTASSIUM 3.1 mmol/L (3.6-5.2); SODIUM 132 mmol/L (132-148); TOTAL PROTEIN 5.4 g/dL (6.3-8.3)
[2017-08-23] MEDS: Pantoprazole 40 mg EC Tab PO SCH (10:19)
[2017-08-23 15:59] VITALS: BP 136/79; TEMP 99; O2SAT 98
[2017-08-23] MEDS ORDERED: Oxycodone/Acetaminophen 5/325 mg Tab PO ONE (16:30)
--- NOTE | 2017-08-23 17:11 | CP.PCM.PN ---
Subjective - Date & Time of Evaluation Date of Evaluation: 08/23/17 Time of Evaluation: 05:10 - Subjective Subjective: S- pt comfortable/minimal post op discomfort Objective - Vital Signs/Intake and Output Vital Signs (last 24 hours): Temp Pulse Resp BP Pulse Ox 99 F 89 20 136/79 98 08/23/17 15:00 08/23/17 15:00 08/23/17 15:00 08/23/17 15:00 08/23/17 15:00 Intake and Output: 08/23/17 08/23/17 06:59 18:59 Intake Total 325 Balance 325 - Medications Medications: Current Medications Amlodipine Besylate (Norvasc) 5 mg PO DAILY [facility] Last Admin: 08/23/17 10:19 Dose: 5 mg Diphenhydramine HCl (Benadryl) 25 mg PO Q6 [facility] Last Admin: 08/23/17 12:19 Dose: Not Given Docusate Sodium (Colace) 100 mg PO BID [facility] Last Admin: 08/23/17 10:19 Dose: 100 mg Enoxaparin Sodium (Lovenox) 40 mg SC Q24H [facility] Last Admin: 08/22/17 22:59 Dose: 40 mg Hydrochlorothiazide (Hydrodiuril) 25 mg PO DAILY [facility] Last Admin: 08/23/17 10:19 Dose: 25 mg Sodium Chloride (Sodium Chloride 0.9%) 1,000 mls @ 125 mls/hr IV .Q8H [facility] Last Admin: 08/23/17 03:08 Dose: Not Given Lisinopril (Zestril) 10 mg PO DAILY [facility] Last Admin: 08/23/17 10:19 Dose: 10 mg Morphine Sulfate (Morphine) 1 mg IVP Q4 PRN PRN Reason: Pain, severe (8-10) Last Admin: 08/21/17 11:39 Dose: 1 mg Pantoprazole Sodium (Protonix Ec Tab) 40 mg PO DAILY [facility] Last Admin: 08/23/17 10:19 Dose: 40 mg Rosuvastatin Calcium (Crestor) 10 mg PO HS [facility] Last Admin: 08/22/17 23:01 Dose: Not Given - Labs Labs: 08/23/17 08:22 08/23/17 08:22 PT 10.0 SECONDS (9.7-12.2) 08/19/17 08:17 INR 0.9 08/19/17 08:17 APTT 31 SECONDS (21-34) 08/19/17 08:17 - Skin Additional comments: Objective stance/gaitr- deferred L hip wound benign N/V intact no gross progressive deficits Assessment and Plan - Assessment and Plan (Free Text) Assessment: A- s/p L THR P-orthopedically stabel for taransfer
== END 2017-08-23 18:10 | DRG 470 ==
LOC: C.ER 08:10 → C.9E 10:00 → C.6T 11:05
PROVIDERS: ADMIT Internal Medicine Pulmonary Disease; ATTEND Internal Medicine Pulmonary Disease
PROC: 0LNK0ZZ Release Left Hip Tendon, Open Approach (ICD-10-PCS; 2017-08-20)
PROC: 0QU707Z Supplement Left Upper Femur with Autologous Tissue Substitute, Open Approach (ICD-10-PCS; 2017-08-20)
PROC: 0SRB0JZ Replacement of Left Hip Joint with Synthetic Substitute, Open Approach (ICD-10-PCS; principal; 2017-08-20 14:50)
PROC: 30233N1 Transfusion of Nonautologous Red Blood Cells into Peripheral Vein, Percutaneous Approach (ICD-10-PCS; 2017-08-22)
DX: S72.012A Unspecified intracapsular fracture of left femur, initial encounter for closed fracture (principal); E86.0 Dehydration; D64.9 Anemia, unspecified; E78.00 Pure hypercholesterolemia, unspecified; E87.6 Hypokalemia; S52.502A Unspecified fracture of the lower end of left radius, initial encounter for closed fracture; I10 Essential (primary) hypertension; F10.129 Alcohol abuse with intoxication, unspecified; Y90.4 Blood alcohol level of 80-99 mg/100 ml; M16.12 Unilateral primary osteoarthritis, left hip; M65.9 Synovitis and tenosynovitis, unspecified; M62.48 Contracture of muscle, other site; Z86.73 Personal history of transient ischemic attack (TIA), and cerebral infarction without residual deficits; Z82.49 Family history of ischemic heart disease and other diseases of the circulatory system; R00.0 Tachycardia, unspecified; I49.3 Ventricular premature depolarization; W18.39XA Other fall on same level, initial encounter; Y93.89 Activity, other specified; Y92.009 Unspecified place in unspecified non-institutional (private) residence as the place of occurrence of the external cause; F17.210 Nicotine dependence, cigarettes, uncomplicated; M25.462 Effusion, left knee; Z79.899 Other long term (current) drug therapy

== ENCOUNTER 2018-10-01 18:55 | Emergency (ER) | payer MEDICARE, MEDICAID ==
[2018-10-01 18:55] VITALS: BMI 22.4
[2018-10-01 19:10] VITALS: RESP 18; O2SAT 95
[2018-10-01] MEDS ORDERED: Tdap Vaccine 0.5 ml Vial (10-64 yrs) IM ONE ×2 (19:23→20:12)
[2018-10-01] MEDS ORDERED: Lidocaine 1% Inj (20ml) INFIL ONE (19:24)
[2018-10-01 20:04] LABS: BLOOD UREA NITROGEN 15 mg/dL (7-17); CALCIUM 8.5 mg/dl (8.6-10.4); GFR NON-AFRICAN AMERICAN > 60
[2018-10-01 20:06] LABS: ALB/GLOB RATIO 1.3 (1.0-2.1); ALBUMIN 4.8 g/dL (3.5-5.0); ALT/SGPT < 6 U/L (9-52); AST/SGOT 41 U/L (14-36)
--- NOTE | 2018-10-01 20:11 | C.PDOC ---
History Of Present Illness 83 year old female presents to ED with complaint of trauma to the forehead after tripping and falling today. Patient also states that she injured her right eye and her left knee. She denies any loss of consciousness, chest pain, shortness of breath, weakness, or numbness. - HPI Time Seen by Provider: 10/01/18 19:11 Chief Complaint (Nursing): Trauma History Per: Patient History/Exam Limitations: no limitations Onset/Duration Of Symptoms: Hrs Injury Occurred (Timing): Just Before Arrival Location Of Injury: Left: Knee, Anterior: Face (forehead and right eye) Additional History Per: Patient - Fall Fall:Prior To Injury: Tripped Past Medical History Reviewed: Historical Data, Nursing Documentation, Vital Signs Vital Signs: Last Vital Signs Temp 97.7 F 10/01/18 19:02 Pulse 92 H 10/01/18 19:02 Resp 18 10/01/18 19:02 BP 214/105 H 10/01/18 19:02 Pulse Ox 95 10/01/18 19:02 - Medical History PMH: CVA, HTN Denies: Chronic Kidney Disease Surgical History: No Surg Hx - [facility] Procedures EXERCISE TREATMENT OF MUSCULOSK WHOLE USING ASSIST EQUIPMENT (08/23/17) GAIT TRAINING/AMBULAT TREATMENT USING ASSIST EQUIPMENT (08/23/17) HOME MANAGEMENT TREATMENT USING ASSIST EQUIPMENT (08/23/17) RELEASE LEFT HIP TENDON, OPEN APPROACH (08/17/17) REPLACEMENT OF LEFT HIP JOINT WITH SYNTH SUB, OPEN APPROACH (08/17/17) SUPPLEMENT LEFT UPPER FEMUR WITH AUTOL SUB, OPEN APPROACH (08/17/17) TRANSFUSE NONAUT RED BLOOD CELLS IN PERIPH VEIN, PERC (08/17/17) Family History: States: Diabetes, Hypertension - Social History Hx Tobacco Use: No Hx Alcohol Use: Yes Hx Substance Use: No - Immunization History Hx Tetanus Toxoid Vaccination: No Hx Influenza Vaccination: No Hx Pneumococcal Vaccination: No Review Of Systems Constitutional: Negative for: Weakness Eyes: Positive for: Pain (right eye) Cardiovascular: Negative for: Chest Pain Respiratory: Negative for: Shortness of Breath Musculoskeletal: Positive for: Other (left knee pain) Skin: Positive for: Other (laceration to the forehead) Neurological: Negative for: Weakness, Numbness, Dizziness Physical Exam - Physical Exam Appears: Well, Non-toxic, No Acute Distress Skin: Normal Color, Warm, Dry Head: Swelling (to forehead), Laceration (3cm laceration to forehead ) Eye(s): bilateral: PERRL, EOMI, right: Other (subjunctival hemorrhage with swelling no proctosis), left: Normal Inspection Oral Mucosa: Moist Neck: Normal ROM, Supple Chest: Symmetrical, No Deformity, No Tenderness Cardiovascular: Rhythm Regular, No Murmur Respiratory: Normal Breath Sounds, No Accessory Muscle Use, No Rales, No Rhonchi, No Wheezing Gastrointestinal/Abdominal: Soft, No Tenderness Extremity: Tenderness (to anterior aspect of left knee ), Capillary Refill (<2 seconds), Swelling (to anterior aspect of left knee ) Pulses: Left Radial: Normal, Right Radial: Normal Neurological/Psych: Oriented x3, Normal Speech, Normal Cognition ED Course And Treatment - Laboratory Results Result Diagrams: 10/01/18 20:39 10/01/18 19:40 Lab Results: Total Bilirubin 1.3 mg/dL (0.2-1.3) 10/01/18 19:40 AST 41 U/L (14-36) H 10/01/18 19:40 ALT < 6 U/L (9-52) L D 10/01/18 19:40 Alkaline Phosphatase 130 U/L (38-126) H 10/01/18 19:40 Total Protein 8.4 g/dL (6.3-8.3) H 10/01/18 19:40 Albumin 4.8 g/dL (3.5-5.0) 10/01/18 19:40 Globulin 3.6 gm/dL (2.2-3.9) 10/01/18 19:40 Albumin/Globulin Ratio 1.3 (1.0-2.1) 10/01/18 19:40 O2 Sat by Pulse Oximetry: 95 - Other Rad Left Knee X-ray X-Ray: Interpreted by Me, Viewed By Me Interpretation: Preliminary review shows no fracture. - CT Scan/US Head Other Rad Studies (CT/US): Read By Radiologist, Radiology Report Reviewed CT/US Interpretation: Name:SRIRAM DOMÍNGUEZ Exam Date:Oct 01, 2018 8:08:37 PM EST. Modality Type:CT. Description:CT - BRAIN WITH CORONAL AND SAGITTAL MPRS. Gender:F Laterality:Not applicable. :33 Referring Physician:Beto Amador). EXAM: CT Head without Intravenous Contrast. CLINICAL HISTORY: DIZZINESS/TRAUMA. TECHNIQUE: Axial computed tomography images of the head/brain without intravenous contrast. 986 mGy-cm. COMPARISON: None provided. FINDINGS: BRAIN. Chronic periventricular and subcortical microvascular disease is seen. Bilateral basal ganglia and cerebellar calcifications. VENTRICLES: There is generalized parenchymal atrophy noted as demonstrated by symmetrical dilatation of ventricles and sulci. ORBITS: The orbits are unremarkable. SINUSES AND MASTOIDS: The paranasal sinuses and mastoid air cells are clear. BONES: No fracture. SOFT TISSUES: Unremarkable. MISCELLANEOUS: Extensive right periorbital hematoma/swelling. No acute intracranial pathology. IMPRESSION: 1. There is generalized parenchymal atrophy noted as demonstrated by symmetrical dilatation of ventri cles and sulci. 2. Chronic periventricular and subcortical microvascular disease is seen. 3. Bilateral basal ganglia and cerebellar calcifications. 4. Extensive right periorbital hematoma/swelling. 5. No acute intracranial pathology. . Electronically signed on Oct 01, 2018 8:29:31 PM EST by: Ian Cade M.D., LEEANNE Certified By ABR & CBCCT. Fellowship Trained MRI and CT Specialist Maxillofacial Other Rad Studies (CT/US): Read By Radiologist, Radiology Report Reviewed CT/US Interpretation: Name:SRIRAM DOMÍNGUEZ Exam Date:Oct 01, 2018 8:12:32 PM EST. Modality Type:CT. Description:CT - FACIAL BONES. Gender:F Laterality:Not applicable. :33 Referring Physician:Beto Amador). EXAM: CT Maxillofacial without Intravenous Contrast. CLINICAL HISTORY: TRAUMA TO RIGHT EYE. TECHNIQUE: Axial computed tomography images of the face without intravenous contrast. Sagittal and coronal reformatted images were generated. 780 mGy-cm. CONTRAST: Without. COMPARISON: None provided. FINDINGS: BONES: No acute fracture or aggressive appearing osseous lesion. The mandible is intact. SOFT TISSUES: Extensive right periorbital as well as facial/forehead R>L swelling/hematoma with diego bcutaneous emphysema. SINUSES: The sinuses are clear. ORBITS: The orbits are normal. No retrobulbar hematoma or mass. IMPRESSION: No fracture. Extensive right periorbital as well as facial/forehead R>L swelling/hematoma with subcutaneous emphysema. . Electronically signed on Oct 01, 2018 8:35:38 PM EST by: Ian Cade M.D., MBA Certified By ABR & CBCCT. Fellowship Trained MRI and CT Specialist Laceration - Laceration Repair Forehead Wound Length (In cm): 3 Description Of Wound: Linear Wound Cleansed With: Sterile Saline Anesthesia: Lidocaine 1% Wound Examination: Irrigated With Saline, No FB With Wound Exploration Wound Closure: Suture (2) Suture Technique And Material Used: Nylon (6:0) Medical Decision Making Medical Decision Making: Impression: Knee pain, eye pain, and forehead laceration Plan: Head w/o contrast CT, Maxillofacial w/o contrast, and Knee 3 views LT ordered for patient Labs ordered with troponin, prothrombin, partial thromboplastin Laceration repair. See procedure note. Disposition - Disposition Disposition: HOME/ ROUTINE Disposition Time: 21:52 Condition: STABLE Additional Instructions: follow up with your doctor within 2 days keep area dry for 24 hours warm water and soap to clean thereafter apply bacitracin twice daily suture removal in 5 days call to make an appointment take medications as prescribed return to ER if symptoms worsens or progress Instructions: Closed Head Injury (DC), Laceration Repair, Contusion (DC), Knee Pain Forms: [facility] (German), General Discharge Instructions - Clinical Impression Clinical Impression: Fall, Facial laceration, Contusion, Head injury, Knee pain - Scribe Statement The provider has reviewed the documentation as recorded by the Scribe (Peace Gil) All medical record entries made by the Scribe were at my direction and personally dictated by me. I have reviewed the chart and agree that the record accurately reflects my personal performance of the history, physical exam, medical decision making, and the department course for this patient. I have also personally directed, reviewed, and agree with the discharge instructions and disposition.
[2018-10-01] MEDS ORDERED: Lidocaine Hydrochloride 5 ML INJ ONE (20:12)
[2018-10-01] MEDS ORDERED: Bacitracin 500 Units/gm Oint Foilpak UD ONE (20:15)
[2018-10-01 20:47] LABS: BASO % 0.4 % (0.0-2.0); EOS % 0.3 % (0.0-4.0); HEMOGLOBIN 13.3 g/dL (11.0-16.0); LYMPH # 1.4 K/uL (1.0-4.3); LYMPH % 17.9 % (20.0-40.0); MEAN CORPUSCULAR HGB CONC 31.2 g/dL (33.0-37.0); MEAN PLATELET VOLUME 8.6 fL (7.2-11.7); MONO # 0.2 K/uL (0.0-0.8); MONO % 2.6 % (0.0-10.0); NEUT # 6.4 K/uL (1.8-7.0); NEUT % 78.8 % (50.0-75.0); NRBC % 0.1 % (0.0-2.0); RBC 4.59 Mil/uL (3.80-5.20); RED CELL DISTRIBUTION WIDTH 13.9 % (11.5-14.5); WHITE BLOOD COUNT 8.1 K/uL (4.8-10.8)
[2018-10-01 20:49] LABS: MEAN CELL VOLUME 92.9 fL (81.0-99.0)
[2018-10-01 20:57] LABS: INR 0.9; PROTHROMBIN TIME 10.2 SECONDS (9.7-12.2)
[2018-10-01 22:18] VITALS: BP 168/82; PULSE 83; TEMP 98.2
--- NOTE | 2018-10-02 07:24 | CT ---
Date of service: 10/01/2018 PROCEDURE: CT HEAD WITHOUT CONTRAST. HISTORY: dizziness COMPARISON: Comparison is made with the previous study dated 08/17/2017 TECHNIQUE: Axial computed tomography images were obtained through the head/brain without intravenous contrast. Radiation dose: Total exam DLP = 986.03 mGy-cm. This CT exam was performed using one or more of the following dose reduction techniques: Automated exposure control, adjustment of the mA and/or kV according to patient size, and/or use of iterative reconstruction technique. FINDINGS: HEMORRHAGE: No intracranial hemorrhage. BRAIN: No mass effect or edema. Hncl-[id number]-yioadzpt atrophy and chronic microvascular ischemic changes. VENTRICLES: Unremarkable. No hydrocephalus. CALVARIUM: Unremarkable. PARANASAL SINUSES: There is a small air-fluid level noted in the left maxillary sinus. MASTOID AIR CELLS: Unremarkable as visualized. No inflammatory changes. OTHER FINDINGS: There is moderate right periorbital soft tissue swelling noted. IMPRESSION: No evidence of acute intracranial hemorrhage intracranial collection mass effect or midline shift. Volume loss and chronic microvascular white matter ischemic changes are again noted. Moderate right periorbital soft tissue swelling noted. Preliminary report contains concordant findings was submitted by [facility].
--- NOTE | 2018-10-02 07:28 | CT ---
Date of service: 10/01/2018 PROCEDURE: CT MAXILLOFACIAL BONES WITHOUT CONTRAST HISTORY: fall COMPARISON: None available. TECHNIQUE: Contiguous axial CT images of the maxillofacial bones were obtained. Coronal and sagittal reformats were generated. Radiation dose: Total exam DLP = 780.85 mGy-cm. This CT exam was performed using one or more of the following dose reduction techniques: Automated exposure control, adjustment of the mA and/or kV according to patient size, and/or use of iterative reconstruction technique. FINDINGS: NASAL BONES: There is age indeterminate likely old left anterior nasal bone fracture noted. ORBITS: No evidence of acute fracture. Moderate right periorbital soft tissue swelling. No evidence of retrobulbar hematoma. PARANASAL SINUSES/ MASTOIDS: There is a small air-fluid level noted in the left maxillary sinus. MAXILLA: Unremarkable. MANDIBLE/ TEMPOROMANDIBULAR JOINTS: Unremarkable. SKULL BASE: Unremarkable. TEMPORAL BONES: Middle ears and mastoid grossly unremarkable. OTHER FINDINGS: None. IMPRESSION: No definite evidence of acute displaced fracture in the maxillofacial bones. Likely old small fracture at the left anterior nasal bone. Moderate right periorbital soft tissue swelling. Small air-fluid level at the left maxillary sinus. Preliminary report contains concordant findings was submitted by [facility].
--- NOTE | 2018-10-02 11:22 | RAD ---
Date of service: 10/01/2018 PROCEDURE: Left Knee Radiographs. HISTORY: Pain. COMPARISON: None. FINDINGS: BONES: Normal. No fracture. 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 Subchondral sclerosis of the lateral femoral condyle and lateral tibial condyle. No articular erosion. JOINT EFFUSION: Small OTHER FINDINGS: None. IMPRESSION: Tricompartmental osteoarthritis most profound laterally. Small joint effusion.
--- NOTE | 2018-10-02 19:09 | CARD ---
APPROVED REPORT Date of service: 10/01/2018 EKG Measurement Heart [id number] <Conclusion> Normal sinus rhythm Left anterior fascicular block Abnormal ECG
== END 2018-10-01 22:20 | disposition home or self-care (01) ==
LOC: C.ER 18:55
DX: S01.81XA Laceration without foreign body of other part of head, initial encounter (principal); W01.0XXA Fall on same level from slipping, tripping and stumbling without subsequent striking against object, initial encounter; I10 Essential (primary) hypertension; Z86.73 Personal history of transient ischemic attack (TIA), and cerebral infarction without residual deficits; Z23 Encounter for immunization

== ENCOUNTER 2018-10-06 11:24 | Emergency (ER) | payer MEDICARE, MEDICAID ==
[2018-10-06 11:37] VITALS: BMI 18.1
[2018-10-06 11:44] VITALS: BP 152/100; PULSE 88; RESP 17; TEMP 97.5; O2SAT 99
--- NOTE | 2018-10-06 11:48 | C.PDOC ---
History Of Present Illness 83 y/o female presents to the ED for suture removal. Patient sustained right forehead laceration on 10/01/18 and had 2 sutures placed here after a mechanical fall. At that time patient also had negative Head and Maxillofacial CT scans. She was instructed to return today for suture removal. Otherwise patient denies any fevers, chills, or drainage or redness at the site. She denies persistent headache, dizziness, nausea, vomiting, or visual changes. Pt has no somatic complaints at this time. Time Seen by Provider: 10/06/18 11:41 Chief Complaint (Nursing): Suture/Staple Removal History Per: Patient History/Exam Limitations: no limitations Onset/Duration Of Symptoms: Days Ago (5) Current Symptoms Are (Timing): Better Past Medical History Reviewed: Historical Data, Nursing Documentation, Vital Signs Vital Signs: Last Vital Signs Temp 97.5 F L 10/06/18 11:38 Pulse 88 10/06/18 11:38 Resp 17 10/06/18 11:38 BP 152/100 H 10/06/18 11:38 Pulse Ox 99 10/06/18 11:38 - Medical History PMH: CVA, HTN Denies: Chronic Kidney Disease - [facility] Procedures EXERCISE TREATMENT OF MUSCULOSK WHOLE USING ASSIST EQUIPMENT (08/23/17) GAIT TRAINING/AMBULAT TREATMENT USING ASSIST EQUIPMENT (08/23/17) HOME MANAGEMENT TREATMENT USING ASSIST EQUIPMENT (08/23/17) RELEASE LEFT HIP TENDON, OPEN APPROACH (08/17/17) REPLACEMENT OF LEFT HIP JOINT WITH SYNTH SUB, OPEN APPROACH (08/17/17) SUPPLEMENT LEFT UPPER FEMUR WITH AUTOL SUB, OPEN APPROACH (08/17/17) TRANSFUSE NONAUT RED BLOOD CELLS IN PERIPH VEIN, PERC (08/17/17) Family History: States: Diabetes, Hypertension - Social History Hx Tobacco Use: No Hx Alcohol Use: No Hx Substance Use: No - Immunization History Hx Tetanus Toxoid Vaccination: No Hx Influenza Vaccination: No Hx Pneumococcal Vaccination: No Review Of Systems Except As Marked, All Systems Reviewed And Found Negative. Constitutional: Negative for: Fever, Chills Gastrointestinal: Negative for: Nausea, Vomiting Skin: Positive for: Lesions (healing sutured laceration). Negative for: Rash Neurological: Negative for: Weakness, Numbness, Headache, Dizziness Physical Exam - Physical Exam Appears: Well, Non-toxic, No Acute Distress Skin: Warm, Dry Head: Normacephalic, Laceration (Healing 1 cm laceration to the right forehead, 2 sutures intact), Other (Mild, old bruising around right eye) Eye(s): bilateral: Normal Inspection, PERRL, EOMI Neck: Normal ROM, Supple Chest: Symmetrical Cardiovascular: Rhythm Regular Respiratory: Normal Breath Sounds, No Accessory Muscle Use, Other (No respiratory distress) Extremity: Normal ROM Extremity: Bilateral: Atraumatic, Normal Color And Temperature Neurological/Psych: Oriented x3, Normal Speech, Normal Motor, Normal Sensation Gait: Steady ED Course And Treatment O2 Sat by Pulse Oximetry: 99 (RA) Pulse Ox Interpretation: Normal Medical Decision Making Medical Decision Making: Plan: -- Suture Removal Two sutures removed without difficulty, wound healing well without signs of infection. Pt tolerated well without complication. Patient is stable for discharge home. Diagnostic testing results and plan of care discussed with patient. Strict instructions given regarding importance of followup, and signs/symptoms to return to ER including signs of wound infection, headache, dizziness, vision changes, or any other new/worsening symptoms. Pt verbalized understanding of discussion. Patient is A&Ox3, ambulating with steady gait. BP elevated, pt asymptomatic with history of HTN. Vitals will be repeated prior to discharge. 12:15 Patient left ED before repeat vitals or receiving discharge instructions, despite being instructed to wait. Disposition - Disposition Referrals: [facility] [Outside] Disposition: HOME/ ROUTINE Disposition Time: 12:00 Condition: IMPROVED Additional Instructions: Followup with primary doctor within 2 days Return to Er with any new/worsening symptoms Instructions: Stitches Removal, Wound Care (DC) Forms: General Discharge Instructions, [facility] (Jamaican) - Clinical Impression Clinical Impression: Removal of suture - PA / BAKER BENCH / Resident Statement MD/DO has reviewed & agrees with the documentation as recorded. - Scribe Statement The provider has reviewed the documentation as recorded by the Blasibrolando Jackson All medical record entries made by the Blasibrolando were at my direction and personally dictated by me. I have reviewed the chart and agree that the record accurately reflects my personal performance of the history, physical exam, medical decision making, and the department course for this patient. I have also personally directed, reviewed, and agree with the discharge instructions and disposition.
== END 2018-10-06 12:19 | disposition home or self-care (01) ==
LOC: C.ER 11:24
DX: S01.81XD Laceration without foreign body of other part of head, subsequent encounter (principal); I10 Essential (primary) hypertension; Z86.73 Personal history of transient ischemic attack (TIA), and cerebral infarction without residual deficits